=== PATIENT | male | born 1965 | race Two or more races ===

== ENCOUNTER 2020-06-30 13:25 | Outpatient (REF) | payer OTHER, SELFPAY ==
[2020-06-30 14:50] LABS: MANUAL DIFF FLAG NO
[2020-06-30 14:54] LABS: Basophils Percent Auto 0.6 % (0-2); Eosinophils Absolute Auto 0.1 X10*3/uL (0.0-0.4); Eosinophils Percent Auto 1.5 % (0-4); Hematocrit 46.2 % (42-52); Hemoglobin 15.9 g/dl (14.0-18.0); Imm Gran Abs Auto 0.01 X10*3/uL (0.00-0.03); Imm Gran Pct Auto 0.1 % (0.0-0.4); Lymphocytes Absolute Auto 2.3 X10*3/uL (1.2-4.9); Lymphocytes Percent Auto 34.2 % (20-40); Mean Corpuscular HGB Conc 34.4 g/dl (31.0-36.0); Mean Corpuscular Hemoglobin 30.8 pg (27.0-33.0); Mean Corpuscular Volume 89.5 fL (80-98); Mean Platelet Volume 12.2 fL (9.4-12.4); Monocytes Absolute Auto 0.6 X10*3/uL (0.1-1.2); Monocytes Percent Auto 9.4 % (2-11); Neutrophils Absolute Auto 3.6 X10*3/uL (2.0-8.3); Neutrophils Percent Auto 54.2 % (45-73); Platelet Count 154 X10*3/uL (160-400); Red Blood Count 5.16 X10*6/uL (4.60-5.80); Red Cell Distribution Width 11.5 % (11.0-16.0); White Blood Count 6.7 X10*3/uL (4.8-10.8)
[2020-06-30 15:14] LABS: Estimated Average Glucose 108 mg/dL; Hemoglobin A1c % 5.4 %
[2020-06-30 15:22] LABS: Alanine Aminotransferase 68 U/L (0-40); Albumin Level 4.4 g/dL (3.5-5.0); Alkaline Phosphatase 73 U/L (39-117); Anion Gap 15 (12-20); Aspartate Amino Transferase 55 U/L (5-37); Bilirubin Total 0.9 mg/dL (0.0-1.0); Blood Urea Nitrogen 18 mg/dL (9-16); Calcium 9.3 mg/dL (8.4-10.2); Carbon Dioxide 29 mmol/L (22-29); Chloride 104 mmol/L (96-108); Cholesterol 243 mg/dL; Estimated Glomerular Filt Rate > 60; Glucose Random 108 mg/dL (60-115); HDL Cholesterol 47 mg/dL; LDL Cholesterol Calculated 159 mg/dl; Potassium 4.6 mmol/L (3.3-5.1); Sodium 143 mmol/L (135-145); Total Protein 7.6 g/dL (6.5-8.0); Triglycerides 186 mg/dL
[2020-06-30 15:45] LABS: Free T4 (Free Thyroxine) 0.96 ng/dL (0.71-1.85); Prostate Specific Antigen Scr 0.09 ng/mL (<0.05-4.0); Thyroid Stimulating Hormone 1.07 uIU/mL (0.32-4.0)
[2020-06-30 16:53] LABS: Folate 11.4 ng/mL (> or = 4.0); Vitamin B12 413 pg/mL (200-900)
== END 2020-06-30 13:26 | disposition home or self-care (01) ==
LOC: HO.LAB 13:25
PROVIDERS: PCP Internal Medicine; Visit Provider Internal Medicine
DX: R73.02 Impaired glucose tolerance (oral) (principal); E78.00 Pure hypercholesterolemia, unspecified
CPT/HCPCS: 36415; 80053; 80061; 82607; 82746; 83036; 84153; 84439; 84443; 85025

== ENCOUNTER 2020-11-11 13:03 | Outpatient (REF) | payer OTHER, SELFPAY ==
[2020-11-11 13:38] LABS: MANUAL DIFF FLAG NO
[2020-11-11 13:42] LABS: Basophils Percent Auto 0.6 % (0-2); Eosinophils Absolute Auto 0.1 X10*3/uL (0.0-0.4); Eosinophils Percent Auto 1.4 % (0-4); Hemoglobin 16.8 g/dl (14.0-18.0); Imm Gran Abs Auto 0.01 X10*3/uL (0.00-0.03); Imm Gran Pct Auto 0.2 % (0.0-0.4); Lymphocytes Absolute Auto 1.8 X10*3/uL (1.2-4.9); Lymphocytes Percent Auto 28.3 % (20-40); Mean Corpuscular Hemoglobin 31.2 pg (27.0-33.0); Mean Corpuscular Volume 89.2 fL (80-98); Mean Platelet Volume 12.2 fL (9.4-12.4); Monocytes Absolute Auto 0.6 X10*3/uL (0.1-1.2); Monocytes Percent Auto 9.5 % (2-11); Neutrophils Absolute Auto 3.8 X10*3/uL (2.0-8.3); Platelet Count 151 X10*3/uL (160-400); Red Blood Count 5.38 X10*6/uL (4.60-5.80); Red Cell Distribution Width 11.4 % (11.0-16.0); White Blood Count 6.3 X10*3/uL (4.8-10.8)
[2020-11-11 13:52] LABS: Estimated Average Glucose 105 mg/dL; Hemoglobin A1c % 5.3 %
[2020-11-11 14:22] LABS: Alanine Aminotransferase 45 U/L (0-40); Albumin Level 4.6 g/dL (3.5-5.0); Alkaline Phosphatase 70 U/L (39-117); Anion Gap 13 (12-20); Aspartate Amino Transferase 36 U/L (5-37); Bilirubin Total 1.1 mg/dL (0.0-1.0); Blood Urea Nitrogen 25 mg/dL (9-16); Calcium 9.8 mg/dL (8.4-10.2); Carbon Dioxide 26 mmol/L (22-29); Chloride 104 mmol/L (96-108); Cholesterol 223 mg/dL; Estimated Glomerular Filt Rate > 60; Glucose Random 119 mg/dL (60-115); HDL Cholesterol 44 mg/dL; LDL Cholesterol Calculated 139 mg/dl; Potassium 4.4 mmol/L (3.3-5.1); Sodium 139 mmol/L (135-145); Total Protein 8.1 g/dL (6.5-8.0); Triglycerides 204 mg/dL
[2020-11-11 14:47] LABS: Prostate Specific Antigen Scr 0.09 ng/mL (<0.05-4.0); Thyroid Stimulating Hormone 0.53 uIU/mL (0.32-4.0)
[2020-11-11 14:55] LABS: Vitamin B12 455 pg/mL (200-900)
== END 2020-11-11 13:04 | disposition home or self-care (01) ==
LOC: HO.LAB 13:03
PROVIDERS: PCP Internal Medicine; Visit Provider Internal Medicine
DX: R73.02 Impaired glucose tolerance (oral) (principal); E78.00 Pure hypercholesterolemia, unspecified
CPT/HCPCS: 36415; 80053; 80061; 82607; 82746; 83036; 84153; 84439; 84443; 85025

== ENCOUNTER 2021-12-27 16:02 | Outpatient (REF) | payer OTHER, SELFPAY | END 2021-12-27 16:03 | disposition home or self-care (01) | LOC: HO.LAB 16:02 | PROVIDERS: PCP Internal Medicine; Visit Provider Nurse Practitioner Family | DX: Z13.89 Encounter for screening for other disorder (principal) | CPT/HCPCS: 36415; 83036; 84153 ==

== ENCOUNTER 2021-12-28 13:07 | Outpatient (REF) | payer OTHER, SELFPAY ==
[2021-12-28 14:19] LABS: Estimated Average Glucose 103 mg/dL; Hemoglobin A1C 149.8487 umol/L; Hemoglobin A1c % 5.2 %
[2021-12-28 15:03] LABS: Prostate Specific Antigen 0.11 ng/mL (<0.05-4.0)
== END 2021-12-28 13:08 | disposition home or self-care (01) ==
LOC: HO.LAB 13:07
PROVIDERS: Visit Provider Nurse Practitioner Family
DX: Z12.5 Encounter for screening for malignant neoplasm of prostate (principal); R73.02 Impaired glucose tolerance (oral)
CPT/HCPCS: 36415; 83036; 84153

== ENCOUNTER 2022-03-08 16:55 | Outpatient (REF) | payer OTHER, SELFPAY ==
[2022-03-08 17:10] LABS: MANUAL DIFF FLAG NO
[2022-03-08 17:29] LABS: Basophils Percent Auto 0.6 % (0-2); Eosinophils Absolute Auto 0.1 X10*3/uL (0.0-0.4); Eosinophils Percent Auto 1.3 % (0-4); Hematocrit 48.3 % (42.0-52.0); Hemoglobin 16.7 g/dl (14.0-18.0); Imm Gran Abs Auto 0.02 X10*3/uL (0.00-0.03); Imm Gran Pct Auto 0.3 % (0.0-0.4); Lymphocytes Absolute Auto 1.7 X10*3/uL (1.2-4.9); Lymphocytes Percent Auto 24.1 % (20-40); Mean Corpuscular HGB Conc 34.6 g/dl (31.0-36.0); Mean Corpuscular Hemoglobin 30.7 pg (27.0-33.0); Mean Corpuscular Volume 88.8 fL (80.0-98.0); Mean Platelet Volume 11.8 fL (9.4-12.4); Monocytes Absolute Auto 0.8 X10*3/uL (0.1-1.2); Monocytes Percent Auto 10.8 % (2-11); Neutrophils Absolute Auto 4.4 x10*3/uL (2.0-8.3); Neutrophils Percent Auto 62.9 % (45-73); Platelet Count 133 X10*3/uL (160-400); Red Blood Count 5.44 X10*6/uL (4.60-5.80); Red Cell Distribution Width 11.7 % (11.0-16.0); White Blood Count 6.9 X10*3/uL (4.8-10.8)
[2022-03-08 17:44] LABS: Alanine Aminotransferase 33 U/L (0-40); Albumin Level 4.7 g/dL (3.5-5.0); Alkaline Phosphatase 77 U/L (39-117); Anion Gap 16 (12-20); Aspartate Amino Transferase 33 U/L (5-37); Bilirubin Total 1.1 mg/dL (0.0-1.0); Blood Urea Nitrogen 18 mg/dL (9-16); Calcium 10.1 mg/dL (8.4-10.2); Carbon Dioxide 28 mmol/L (22-29); Chloride 101 mmol/L (96-108); Cholesterol 261 mg/dL; Estimated Glomerular Filt Rate 59; Glucose Random 93 mg/dL (60-115); HDL Cholesterol 53 mg/dL; LDL Cholesterol Calculated 156 mg/dl; Potassium 4.8 mmol/L (3.3-5.1); Sodium 140 mmol/L (135-145); Total Protein 8.3 g/dL (6.5-8.0); Triglycerides 262 mg/dL
[2022-03-08 18:05] LABS: Free T4 (Free Thyroxine) 1.13 ng/dL (0.71-1.85); Prostate Specific Antigen Scr 0.07 ng/mL (<0.05-4.0); Thyroid Stimulating Hormone 1.68 uIU/mL (0.32-4.0)
[2022-03-08 18:17] LABS: Folate 12.4 ng/mL (> or = 4.0); Vitamin B12 507 pg/mL (200-900)
== END 2022-03-08 16:56 | disposition home or self-care (01) ==
LOC: HO.LAB 16:55
PROVIDERS: PCP Internal Medicine; Visit Provider Internal Medicine
DX: Z12.5 Encounter for screening for malignant neoplasm of prostate (principal); E78.00 Pure hypercholesterolemia, unspecified
CPT/HCPCS: 36415; 80053; 80061; 82607; 82746; 84153; 84439; 84443; 85025

== ENCOUNTER 2022-09-04 10:12 | Emergency (ER) | payer OTHER, SELFPAY ==
--- NOTE | ~2022-09-04 | XR_ITS ---
EXAMINATION: XR KNEE, RIGHT CLINICAL INFORMATION: Atraumatic right anterior knee pain. COMPARISON: None available. TECHNIQUE: Four views of the right knee. FINDINGS: Bones and soft tissues are normal. No fracture or joint effusion. Alignment is anatomic. Joint spaces are well maintained. No abnormal soft tissue calcification. XR/XR knee RT 4V IMPRESSION: Unremarkable right knee.
[2022-09-04 10:30] VITALS: BP 153/90; PULSE 54; RESP 18; TEMP 36.7; O2SAT 97; BMI 26.6
--- NOTE | 2022-09-04 12:16 | PC.NURSE ---
Patient in room awaiting provider. Patient describes anxiety and pain both /10. Pt resting comfortably in chair.
--- NOTE | 2022-09-04 12:24 | ED.EXTPRO ---
HPI - Extremity Problem General Chief complaint: Extremity Problem Stated complaint: R leg pain/Anxiety Time Seen by Provider: 09/04/22 12:17 Source: patient, RN notes reviewed and old records reviewed Mode of arrival: ambulatory History of Present Illness HPI Narrative: 57-year-old male with a past medical history of GERD, fatty liver, HLD, obesity, thrombocytopenia, presenting to the ED complaining of suspected anxiety/panic attack last night with associated body parathesias/numbness, chest discomfort and SOB. Reports has intermittent chest discomfort x awhile which his PCP is aware of. Also reports acute on chronic right knee pain, admits practices [employer] suspects overuse injury from kicking. Denies more recent injury/trauma or fall. Denies headache, lightheadedness/dizziness, focal weakness, fever/chills MD Complaint: extremity pain and joint pain Onset (ago): day(s) Related Data Previous Rx's Medication Instructions Recorded clotrimazole 1 % topical cream 1 appl topical BID 4 weeks #30 05/19/21 grams miconazole nitrate 2 % topical 1 appl topical BID #71 grams 05/19/21 powder (Zeasorb AF) sildenafil 100 mg tablet (Viagra) 100 mg PO DAILY PRN sexual 05/19/21 activity #30 tabs omeprazole 20 mg capsule,delayed 20 mg PO DAILY #90 caps 11/24/21 release triamcinolone acetonide 0.025 % 1 appl topical BID #45 grams 03/08/22 topical cream buspirone 10 mg tablet 10 mg PO DAILY 90 days #90 tabs 05/31/22 clonazepam 0.5 mg tablet 0.5 mg PO BEDTIME PRN anxi 30 days 05/31/22 #30 tabs diphenoxylate-atropine 2.5 1 tab PO TID 90 days #270 tabs 05/31/22 mg-0.025 mg tablet propranolol 20 mg tablet 20 mg PO .QD 90 days #90 tabs 05/31/22 Allergies Allergy/AdvReac Type Severity Reaction Status Date / Time lactose [LACTOSE] AdvReac Severe TRIGGERS Verified 06/18/22 15:51 IBS Review of Systems Review of Systems: Constitutional: No Fever, No Chills ENT/Mouth: No Ear Pain, No Nasal Congestion, No Sinus Pain, No Hoarseness, No sore throat, No Rhinorrhea, No Swallowing Difficulty Cardiovascular: +intermittent Chest Pain, + SOB Respiratory: No Cough, No Sputum, No Wheezing Gastrointestinal: No Nausea, No Vomiting, No Diarrhea, No Constipation, No Abdominal pain Genitourinary: No Dysuria, No Urinary Frequency, No Hematuria, No Urinary Incontinence/retention, No Flank Pain Musculoskeletal: + joint pain, No Myalgias, No Joint Swelling Skin: No Skin Lesions, No rash Neuro: No Weakness, + Numbness, + Paresthesias Yes all other systems are reviewed and are negative Constitutional: Constitutional: Reports as per HPI Neurologic: Denies Abnormal speech present [facility] Past Medical History Attestation statement: The following information was validated with the patient. Medical History Erectile dysfunction Fatty liver GERD (gastroesophageal reflux disease) Hypercholesterolemia Irritable bowel syndrome Obesity (BMI 30-39.9) Overweight (BMI 25.0-29.9) Thrombocytopenia Vitamin D deficiency Surgical History History of colonoscopy History of surgery Family History Family History Father Lung cancer Mother Hypertension Diabetes Social History Social History Housing: Apartment Alcohol intake: current Alcohol intake frequency: holidays/special occasions only Patient Tobacco Use Status: Former Tobacco user Tobacco use type: Cigarette e-Cigarette/Vaping Use: Never Used Second Hand Smoke Exposure: Yes Advance Directives: No Advance Directives Information Provided: Yes service: No Current occupational status: unemployed Cognitive needs: No Hearing needs: No Vision needs: Yes Physical Exam Vital Signs: Vital Signs: Last Vital Signs Temp 98.1 F 09/04/22 10:30 Pulse 54 09/04/22 10:30 Resp 18 09/04/22 10:30 BP 153/90 H 09/04/22 10:30 Pulse Ox 97 09/04/22 10:30 O2 Del Method Room Air 09/04/22 10:30 BMI result Body Mass Index 26.6 Const: General: cooperative, healthy appearing, no acute distress, alert and awake Orientation/consciousness: patient oriented x3 Limitations: no limitations HEENT: Head: Yes normal to inspection and Yes atraumatic Ears: hearing grossly normal bilaterally General nose exam: Normal external nose present Face and sinus: Yes normal facial exam Mouth: Normal oral and palatal mucosa present Throat: Yes posterior oropharynx normal Eyes: General: appearance normal, both eyes and all related structures Pupils: Equal, round and reactive pupils present EOM: EOMs intact bilaterally Neck: Neck: Yes normal visual inspection, Yes no meningeal signs and No anterior neck swelling Resp: Effort & Inspection: normal respiratory effort and no respiratory distress Auscultation: clear to auscultation bilaterally, no rales, no rhonchi and no wheezes Cardio: Rate: regular rate Heart sounds: S1 normal heart sound present and S2 normal heart sound present Skin: Rashes: no rashes Wounds: no wounds Neuro: General: patient oriented x3, gait normal, tone normal, moves all extremities, no meningeal signs, no focal motor deficits and CN's II-XI intact bilaterally Cranial nerves: Yes CN's II-XII intact bilaterally and Yes Equal, round and reactive pupils present Cognition (Neuro): normal cognition Speech: No Abnormal speech present Gait exam (Neuro): Normal gait present Motor exam (neuro): 5/5 motor strength present throughout and Pronator motor function not present Extrem: Other: right knee without noted deformity. Nontender. No erythema/warmth. Full range of motion intact. Neurovascular intact distally General: Yes normal to inspection Course Course Course Narrative: XR knee RT 4V IMPRESSION: Unremarkable right knee. -[id number]--labs unremarkable including negative troponin Results discussed with patient including worrisome signs and symptoms and strict return precautions, and when to return to the emergency department. They verbalized understanding and feel safe for discharge at this time. Medical Decision Making Medical Decision Making [facility] Narrative: 57-year-old male with a past medical history of GERD, fatty liver, HLD, obesity, thrombocytopenia, presenting to the ED complaining of suspected anxiety/panic attack last night with associated body parathesias/numbness, chest discomfort and SOB. On exam vital signs stable, NAD, nontoxic appearing, right knee nontender, no noted deformity, no focal deficits. Concern for anxiety/panic reaction vs MSK pain/strain. Symptoms atypical for ACS/PE or CVA/TIA. Unlikely PNA Plan: EKG, labs, knee x-ray Please refer to course for remaining clinical decision making, interpretation of labs/imaging results, and discussions with consultants and/or family members. Differential Diagnosis Differential Diagnoses: The differential diagnosis associated with the presentation includes As above Admission/Observation Consideration of admission/observation: Escalation of care including admission/observation considered Lab Data MDM Lab Attestation statement: I reviewed the patient's lab results. 09/04/22 12:57 09/04/22 12:57 Labs: Lab Results 09/04/22 09/04/22 09/04/22 Range/Units 12:57 12:57 12:57 WBC 8.0 (4.8-10.8) X10*3/uL RBC 5.47 (4.60-5.80) X10*6/uL Hgb 16.6 (14.0-18.0) g/dl Hct 47.5 (42.0-52.0) % MCV 86.8 (80.0-98.0) fL MCH 30.3 (27.0-33.0) pg MCHC 34.9 (31.0-36.0) g/dl RDW 11.4 (11.0-16.0) % Plt Count 173 D (160-400) X10*3/uL MPV 11.8 (9.4-12.4) fL Immature Gran % (Auto) 0.2 (0.0-0.4) % Neut % (Auto) 65.5 (45-73) % Lymph % (Auto) 26.6 (20-40) % Nelson % (Auto) 6.6 (2-11) % Eos % (Auto) 0.5 (0-4) % Baso % (Auto) 0.6 (0-2) % Lymph # (Auto) 2.1 (1.2-4.9) X10*3/uL Nelson # (Auto) 0.5 (0.1-1.2) X10*3/uL Eos # (Auto) 0.0 (0.0-0.4) X10*3/uL Baso # (Auto) 0.1 (0.0-0.2) X10*3/uL Abs Immat Gran (auto) 0.02 (0.00-0.03) X10*3/uL Absolute Neuts (auto) 5.3 (2.0-8.3) x10*3/uL Absolute Nucleated RBC 0.000 (0.0-0.012) X10*3/uL Nucleated RBC % (auto) 0.0 (0.0-0.2) /100WBC Sodium 140 (135-145) mmol/L Potassium 4.8 (3.3-5.1) mmol/L Chloride 104 (96-108) mmol/L Carbon Dioxide 28 (22-29) mmol/L Anion Gap 13 (12-20) BUN 19 H (9-16) mg/dL Creatinine 0.84 (0.5-1.4) mg/dL Estim Creat Clear Calc 98.1 Estimated GFR > 60 Random Glucose 108 (60-115) mg/dL Calcium 9.7 (8.4-10.2) mg/dL Magnesium 2.1 (1.6-2.6) mg/dL Total Bilirubin 0.9 (0.0-1.0) mg/dL Direct Bilirubin 0.2 (0.0-0.5) mg/dL AST 21 (5-37) U/L ALT 19 (0-40) U/L Alkaline Phosphatase 67 (39-117) U/L Troponin I High Sens < 2.7 (<3.5-35.0) ng/L B-Natriuretic Peptide (<100) pg/mL Total Protein 7.8 (6.5-8.0) g/dL Albumin 4.5 (3.5-5.0) g/dL 09/04/22 Range/Units 12:57 WBC (4.8-10.8) X10*3/uL RBC (4.60-5.80) X10*6/uL Hgb (14.0-18.0) g/dl Hct (42.0-52.0) % MCV (80.0-98.0) fL MCH (27.0-33.0) pg MCHC (31.0-36.0) g/dl RDW (11.0-16.0) % Plt Count (160-400) X10*3/uL MPV (9.4-12.4) fL Immature Gran % (Auto) (0.0-0.4) % Neut % (Auto) (45-73) % Lymph % (Auto) (20-40) % Nelson % (Auto) (2-11) % Eos % (Auto) (0-4) % Baso % (Auto) (0-2) % Lymph # (Auto) (1.2-4.9) X10*3/uL Nelson # (Auto) (0.1-1.2) X10*3/uL Eos # (Auto) (0.0-0.4) X10*3/uL Baso # (Auto) (0.0-0.2) X10*3/uL Abs Immat Gran (auto) (0.00-0.03) X10*3/uL Absolute Neuts (auto) (2.0-8.3) x10*3/uL Absolute Nucleated RBC (0.0-0.012) X10*3/uL Nucleated RBC % (auto) (0.0-0.2) /100WBC Sodium (135-145) mmol/L Potassium (3.3-5.1) mmol/L Chloride (96-108) mmol/L Carbon Dioxide (22-29) mmol/L Anion Gap (12-20) BUN (9-16) mg/dL Creatinine (0.5-1.4) mg/dL Estim Creat Clear Calc Estimated GFR Random Glucose (60-115) mg/dL Calcium (8.4-10.2) mg/dL Magnesium (1.6-2.6) mg/dL Total Bilirubin (0.0-1.0) mg/dL Direct Bilirubin (0.0-0.5) mg/dL AST (5-37) U/L ALT (0-40) U/L Alkaline Phosphatase (39-117) U/L Troponin I High Sens (<3.5-35.0) ng/L B-Natriuretic Peptide 37 (<100) pg/mL Total Protein (6.5-8.0) g/dL Albumin (3.5-5.0) g/dL Independent Interpretation I performed an independent interpretation of an: EKG (EKG sinus bradycardia rate of 53. ID interval 154. No STEMI. No significant change when compared to prior ) Radiology Impression Discussion of test interpretation with radiology: I have reviewed the radiologist's reading. External Record Review External record reviewed: Inpatient record, Office record, Outpatient record, Prior outpatient labs, Prior outpatient radiology, Primary care record and Outside ED record Discharge Plan Discharge Clinical Impression: Anxiety reaction, Atypical chest pain, Paresthesias, Chronic knee pain Patient Disposition: Home, Self-Care Instructions: Paresthesia (ED), Arthralgia (ED), Noncardiac Chest Pain (ED), Anxiety (ED) Additional Instructions: Your blood work is reassuring. Her heart enzyme was unremarkable Your knee x-ray is also unremarkable Ice and elevate your knee Please follow-up with her doctor Stay hydrated Rest If symptoms persist or worsen you develop constant or worsening chest pain/shortness of breath return to the ED Prescriptions: No Action omeprazole 20 mg capsule,delayed release(DR/EC) 20 mg PO DAILY Qty: 90 0RF buspirone 10 mg tablet 10 mg PO DAILY 90 Days Qty: 90 1RF clonazepam 0.5 mg tablet 0.5 mg PO BEDTIME PRN (Reason: anxi) 30 Days Qty: 30 2RF diphenoxylate-atropine 2.5-0.025 mg tablet 1 tab PO TID 90 Days Qty: 270 2RF propranolol 20 mg tablet 20 mg PO .QD 90 Days Qty: 90 2RF clotrimazole 1 % cream 1 appl topical BID 28 Days Qty: 30 0RF Zeasorb AF 2 % powder 1 appl topical BID Qty: 71 0RF sildenafil [Viagra] 100 mg tablet 100 mg PO DAILY PRN (Reason: sexual activity) Qty: 30 3RF Rx Instructions: administer 30 minutes to 4 hours before activity triamcinolone acetonide 0.025 % cream 1 appl topical BID Qty: 45 0RF [place]: [facility] [place] Group] Danii Caldera MD [Primary Care Provider] - 5 days Interventions: ED Discharge Assessment Last Done: 09/04/22 14:01 Discharge Date/Time: 09/04/22 14:01
--- NOTE | 2022-09-04 12:33 | ECG_ITS ---
Test Reason : CP Blood Pressure : / mmHG Vent. Rate : 053 BPM Atrial Rate : 053 BPM P-R Int : 154 ms QRS Dur : 090 ms QT Int : 418 ms P-R-T Axes : 011 031 030 degrees QTc Int : 392 ms Sinus bradycardia Otherwise normal ECG When compared with ECG of 04-SEP-2019 12:07, No significant change was found Referred By: Simona Lua Electronically Signed By:MAMADOU KRAMER MD
[2022-09-04 13:09] LABS: MANUAL DIFF FLAG NO
[2022-09-04 13:10] LABS: Basophils Absolute Auto 0.1 X10*3/uL (0.0-0.2); Basophils Percent Auto 0.6 % (0-2); Eosinophils Percent Auto 0.5 % (0-4); Hematocrit 47.5 % (42.0-52.0); Hemoglobin 16.6 g/dl (14.0-18.0); Imm Gran Abs Auto 0.02 X10*3/uL (0.00-0.03); Imm Gran Pct Auto 0.2 % (0.0-0.4); Lymphocytes Absolute Auto 2.1 X10*3/uL (1.2-4.9); Lymphocytes Percent Auto 26.6 % (20-40); Mean Corpuscular HGB Conc 34.9 g/dl (31.0-36.0); Mean Corpuscular Hemoglobin 30.3 pg (27.0-33.0); Mean Corpuscular Volume 86.8 fL (80.0-98.0); Mean Platelet Volume 11.8 fL (9.4-12.4); Monocytes Absolute Auto 0.5 X10*3/uL (0.1-1.2); Monocytes Percent Auto 6.6 % (2-11); Neutrophils Absolute Auto 5.3 x10*3/uL (2.0-8.3); Neutrophils Percent Auto 65.5 % (45-73); Platelet Count 173 X10*3/uL (160-400); Red Blood Count 5.47 X10*6/uL (4.60-5.80); Red Cell Distribution Width 11.4 % (11.0-16.0)
[2022-09-04 13:25] LABS: Alanine Aminotransferase 19 U/L (0-40); Albumin Level 4.5 g/dL (3.5-5.0); Alkaline Phosphatase 67 U/L (39-117); Anion Gap 13 (12-20); Aspartate Amino Transferase 21 U/L (5-37); Bilirubin Direct 0.2 mg/dL (0.0-0.5); Bilirubin Total 0.9 mg/dL (0.0-1.0); Blood Urea Nitrogen 19 mg/dL (9-16); Calcium 9.7 mg/dL (8.4-10.2); Carbon Dioxide 28 mmol/L (22-29); Chloride 104 mmol/L (96-108); Creatinine Clr Calc Pharmacy 98.1; Estimated Glomerular Filt Rate > 60; Glucose Random 108 mg/dL (60-115); Magnesium 2.1 mg/dL (1.6-2.6); Potassium 4.8 mmol/L (3.3-5.1); Sodium 140 mmol/L (135-145); Total Protein 7.8 g/dL (6.5-8.0)
[2022-09-04 13:30] LABS: B Type Natriuretic Peptide 37 pg/mL (<100)
[2022-09-04 13:32] LABS: Troponin-I High Sensitivity < 2.7 ng/L (<3.5-35.0)
== END 2022-09-04 14:01 | disposition home or self-care (01) ==
PROVIDERS: Physician Assistant; Emergency Provider Emergency Medicine; PCP Internal Medicine
DX: R07.89 Other chest pain (principal); M25.562 Pain in left knee; M25.561 Pain in right knee; F41.1 Generalized anxiety disorder; F43.0 Acute stress reaction; Z79.899 Other long term (current) drug therapy
CPT/HCPCS: 36415; 73564; 80048; 80076; 83735; 83880; 84484; 85025; 93005; 99283

== ENCOUNTER 2022-09-20 15:53 | Outpatient (REF) | payer OTHER, SELFPAY ==
[2022-09-20 16:08] LABS: MANUAL DIFF FLAG NO
[2022-09-20 16:20] LABS: Basophils Percent Auto 0.4 % (0-2); Eosinophils Absolute Auto 0.1 X10*3/uL (0.0-0.4); Hemoglobin 16.1 g/dl (14.0-18.0); Imm Gran Abs Auto 0.01 X10*3/uL (0.00-0.03); Imm Gran Pct Auto 0.1 % (0.0-0.4); Lymphocytes Absolute Auto 2.5 X10*3/uL (1.2-4.9); Lymphocytes Percent Auto 31.5 % (20-40); Mean Corpuscular HGB Conc 35.8 g/dl (31.0-36.0); Mean Corpuscular Hemoglobin 31.1 pg (27.0-33.0); Mean Platelet Volume 11.5 fL (9.4-12.4); Monocytes Absolute Auto 0.8 X10*3/uL (0.1-1.2); Monocytes Percent Auto 10.4 % (2-11); Neutrophils Absolute Auto 4.4 x10*3/uL (2.0-8.3); Neutrophils Percent Auto 56.6 % (45-73); Platelet Count 172 X10*3/uL (160-400); Red Blood Count 5.17 X10*6/uL (4.60-5.80); Red Cell Distribution Width 11.6 % (11.0-16.0); White Blood Count 7.8 X10*3/uL (4.8-10.8)
[2022-09-20 16:58] LABS: Alanine Aminotransferase 31 U/L (0-40); Albumin Level 4.6 g/dL (3.5-5.0); Alkaline Phosphatase 70 U/L (39-117); Anion Gap 13 (12-20); Aspartate Amino Transferase 29 U/L (5-37); Bilirubin Total 1.2 mg/dL (0.0-1.0); Blood Urea Nitrogen 25 mg/dL (9-16); Calcium 10.1 mg/dL (8.4-10.2); Carbon Dioxide 27 mmol/L (22-29); Chloride 104 mmol/L (96-108); Cholesterol 247 mg/dL; Estimated Glomerular Filt Rate > 60; Glucose Random 95 mg/dL (60-115); HDL Cholesterol 46 mg/dL; LDL Cholesterol Calculated 149 mg/dl; Potassium 4.7 mmol/L (3.3-5.1); Sodium 139 mmol/L (135-145); Total Protein 7.9 g/dL (6.5-8.0); Triglycerides 264 mg/dL
[2022-09-20 17:06] LABS: Free T4 (Free Thyroxine) 0.98 ng/dL (0.71-1.85)
== END 2022-09-20 15:54 | disposition home or self-care (01) ==
LOC: HO.LAB 15:53
PROVIDERS: PCP Internal Medicine; Visit Provider Internal Medicine
DX: E78.00 Pure hypercholesterolemia, unspecified (principal)
CPT/HCPCS: 36415; 80053; 80061; 84439; 84443; 85025

== ENCOUNTER 2022-12-28 14:45 | Outpatient (AMB) | payer OTHER, SELFPAY ==
[2022-12-28 14:49] VITALS: BP 110/80; PULSE 85; O2SAT 97; BMI 28.1
--- NOTE | 2022-12-28 14:49 | AM.OFFVISMDC ---
Intake Vital Signs 12/28/22 14:49 Height 5 ft 9 in Weight 190 lb 4 oz BMI 28.1 BP 110/80 Blood Pressure Location Lt brachial Position Sitting Pulse 85 Pulse Source Pulse Oximeter Pulse Oximetry (%) 97 Oxygen Delivery Method Room Air Intake Visit Reasons: [facility] Intake Note: Patient is here for an Annual Wellness Visit. Hospital Housekeeper Required: No Accompanied by: Self / Same As Patient Allergies lactose [LACTOSE] Adverse Reaction (Severe, Verified 12/28/22 15:03) TRIGGERS IBS Medication List - Last Reconciled 12/28/22 by ELIE Victoria buspirone 10 mg PO DAILY 90 days clonazepam 0.5 mg PO BEDTIME PRN 30 days clotrimazole 1% 1 appl topical BID 4 weeks diphenoxylate-atropine 2.5-0.025 mg 1 tab PO TID 90 days miconazole nitrate 2% (Zeasorb AF) 1 appl topical BID propranolol 20 mg PO .QD 90 days triamcinolone acetonide 0.025% 1 appl topical BID HPI [facility] HPI Details Patient is a 57-year-old male presents today for subsequent wellness visit.? Patient of Dr. Caldera. Patient is up-to-date with his health preventative screenings and immunizations.? [place] of care was reviewed with the patient and he was provided with a screening schedule. Patient has declined the end of life planning conversation at this visit. ? [facility] Medical History Erectile dysfunction Fatty liver GERD (gastroesophageal reflux disease) Hypercholesterolemia Irritable bowel syndrome Obesity (BMI 30-39.9) Overweight (BMI 25.0-29.9) Thrombocytopenia Vitamin D deficiency Surgical History History of colonoscopy History of surgery Family History Father Lung cancer Mother Hypertension Diabetes Social History Housing: Apartment Alcohol intake: current Alcohol intake frequency: holidays/special occasions only Patient Tobacco Use Status: Former Tobacco user Tobacco use type: Cigarette e-Cigarette/Vaping Use: Never Used Second Hand Smoke Exposure: Yes service: No Current occupational status: unemployed Cognitive needs: No Hearing needs: No Vision needs: Yes Questionnaire Medicare Wellness Checkup [age] 65-69 What gender do you identify with?: male During the past 4 weeks, how much have you been bothered by emotional problems such as feeling anxious, depressed, irritable, sad or downhearted, and blue?: slightly During the past 4 weeks, has your physical & emotional health limited your social activities with family, friends, neighbors, or groups?: slightly During the past 4 weeks, how much bodily pain have you generally had?: very mild pain During the past 4 weeks, was someone available to help you if you needed & wanted help?: yes, a little During the past 4 weeks, what was the hardest physical activity you could do for at least 2 minutes?: moderate Can you get to places out of walking distance without help? (For eg., can you travel alone on buses, taxis or drive your car?): No Can you go shopping for groceries or clothes without someone's help?: Yes Can you prepare your own meals?: Yes Can you do your housework without help?: Yes Because of any health problems, do you need the help of another person with your personal care needs such as eating, bathing, dressing or getting around the house?: Yes Can you handle your own money without help?: No During the past 4 weeks, how would you rate your health in general?: fair During the past 4 weeks how have things been going for you?: good & bad parts about equal Are you having difficulties driving your car?: no Do you always fasten your seat belt when you are in a car?: yes, sometimes During past 4 weeks, have you been bothered by the following: never: Falling or dizzy when standing up, Sexual problems?, Trouble eating well? and Problems using the telephone?, seldom: Tiredness or fatigue? and always: Teeth or denture problems? Have you fallen 2 or more times in the past year?: No Are you afraid of falling?: No Are you a smoker?: no During the past 4 weeks, how many drinks of wine, beer, or other alcoholic beverages did you have?: 6-9 drinks per week Do you exercise for about 20 minutes 3 or more times a week?: yes, most of the time Have you been given information to help with the following?: no: Hazards in your house that might hurt you? and no: Keeping track of your medications? How often do you have trouble taking medicines the way you have been told to take them?: I always take medicine as prescribed How confident are you that you can control & manage most of your health problems?: very confident What is your race?: or origin or descent Mini Mental State Exam (MMSE) Orientation What is the (year) (season) (date) (day) (month)?: year, season, date, day and month Score Score: 5 Activity of Daily Living Bathing - sponge bath, tub bath or shower: receives no assistance (gets in/out by self, if usual bathing means Dressing - getting clothes from closets & drawers, including inner/outer garments & fasteners.: gets clothes & gets completely dressed without help Toileting - going to the 'toilet room' for urine/bowel elimination & cleaning self/arranging clothes: goes to toilet room, cleans self, arranges clothes without help Transfer: moves in & out of bed and chair without help (may use support object) Continence: controls urination/bowel movements completely by self Feeding: feeds self without help Total Score: 0 Information obtained from: patient Using telephone: independent Traveling: independent Shopping: independent Preparing meals: independent Housework: independent Taking medicine: independent Managing money: independent PHQ-9 Over the last 2 weeks, how often have you been bothered by any of the following problems? 1. Little interest or pleasure in doing things: several days 2. Feeling down, depressed, or hopeless: several days 3. Trouble falling or staying asleep, or sleeping too much: more than half the days 4. Feeling tired or having little energy: several days 5. Poor appetite or overeating: not at all 6. Feeling bad about yourself - or that you are a failure or have let yourself or your family down: more than half the days 7. Trouble concentrating on things, such as reading the newspaper or watching television: not at all 8. Moving or speaking so slowly that other people could have noticed. Or the opposite - being so fidgety or restless that you have been moving around a lot more than usual: not at all 9. Thoughts that you would be better off or of hurting yourself in some way: several days Total score: 8 Depression Screening Interpretation: Positive Depression Screening Follow-up: In treatment 65812 - PHQ-9 Billing: Yes Source: Developed by Drs. Jimenez Pelayo, Rhoda Hawley, Lennox Sin and colleagues, with an educational alaina from [employer]. Physical Exam Vital Signs: BMI result Body Mass Index 28.1 Const General: cooperative and no acute distress Orientation/consciousness: patient oriented x3 HEENT Other: Whisper test: pass Neuro Other: Balance: Normal Get up and walk: able to Romberg: negative Tandem gait: able to General: patient oriented x3 Assessment & Plan Assessment & Plan (1) Adult general medical exam: Code(s): Z00.00 - Encounter for general adult medical examination without abnormal findings (2) Overweight (BMI 25.0-29.9): Code(s): E66.3 - Overweight Plan: Encouraged healthy food choices and exercise as tolerated (3) Impaired glucose tolerance: Code(s): R73.02 - Impaired glucose tolerance (oral) Plan: Random glucose 95 09/2022 Continue to monitor (4) Fatty liver: Code(s): K76.0 - Fatty (change of) liver, not elsewhere classified Plan: Encouraged low cholesterol diet (5) GERD (gastroesophageal reflux disease): Code(s): K21.9 - Gastro-esophageal reflux disease without esophagitis Qualifiers: Esophagitis presence: without esophagitis Qualified Code(s): K21.9 - Gastro-esophageal reflux disease without esophagitis Plan: Avoid GERD trigger foods. (6) Hypercholesterolemia: Code(s): E78.00 - Pure hypercholesterolemia, unspecified Plan: Reinforced low-cholesterol diet and exercise. (7) Anxiety: Comment: Panic disorder Code(s): F41.9 - Anxiety disorder, unspecified Plan: Continue to follow-up with your therapist. Continue current treatment. Quality Reporting (2019) Depression/Bipolar (159/160/161/177) PHQ-9: Total score: 8 Coding Level of Care Code Medicare Subsequent (G0439) Diagnoses Adult general medical exam Z00.00 Overweight (BMI 25.0-29.9) E66.3 Impaired glucose tolerance R73.02 Fatty liver K76.0 GERD (gastroesophageal reflux disease) K21.9 Esophagitis presence: without esophagitis Hypercholesterolemia E78.00 Anxiety F41.9 Advance Care Planning Advance Care Planning discussion: Declined forms Date of discussion: 12/28/22 Who was present: pt and welfare adviser Actual minutes spent: 1 Did not discuss due to Cultural/Spiritual beliefs: No
== END 2022-12-28 15:16 | disposition home or self-care (01) ==
PROVIDERS: Visit Provider Nurse Practitioner Family
DX: Z00.00 Encounter for general adult medical examination without abnormal findings (principal); K21.9 Gastro-esophageal reflux disease without esophagitis; F41.9 Anxiety disorder, unspecified; E66.3 Overweight; R73.02 Impaired glucose tolerance (oral); K76.0 Fatty (change of) liver, not elsewhere classified; E78.00 Pure hypercholesterolemia, unspecified
CPT/HCPCS: G0439

== ENCOUNTER 2023-04-02 15:15 | Outpatient (AMB) | payer OTHER, SELFPAY ==
[2023-04-02 15:19] VITALS: BP 130/90; PULSE 55; O2SAT 90; BMI 28.8
--- NOTE | 2023-04-02 15:19 | A.OFFPC_ITS ---
Vital Signs 04/02/23 15:19 04/02/23 16:03 Height 5 ft 9 in Weight 195 lb 2 oz BMI 28.8 BP 130/90 H 136/82 Blood Pressure Location Lt brachial Lt brachial Position Sitting Sitting Pulse 55 Pulse Source Pulse Oximeter Pulse Oximetry (%) 90 L Oxygen Delivery Method Room Air Intake Visit Reasons: anxiety Egg Sorter Required: No Accompanied by: Self / Same As Patient Allergies lactose [LACTOSE] Adverse Reaction (Severe, Verified 04/02/23 15:19) TRIGGERS IBS Medication List - Last Reconciled 04/02/23 by Danii Caldera MD buspirone 10 mg PO DAILY 90 days clonazepam 0.5 mg PO BEDTIME PRN 30 days clotrimazole 1% 1 appl topical BID 4 weeks diphenoxylate-atropine 2.5-0.025 mg 1 tab PO TID 90 days miconazole nitrate 2% (Zeasorb AF) 1 appl topical BID propranolol 20 mg PO .QD 90 days triamcinolone acetonide 0.025% 1 appl topical BID Tobacco use date assessed: 06/18/22 Dental Screening Dental Screen Date: 04/02/23 Did you have a dental visit in the last 12 months?: Yes Did you have a dental problem in the last 6 months where you did not have access to dental care?: No Was dental information given to patient?: Patient has dentist HPI anxiety HPI Details 57-year-old overweight male with a histo ry of hypercholesterolemia irritable bowel syndrome GERD impaired glucose tolerance and generalized anxiety disorder last seen in September 2022. Patient is up-to-date with colonoscopy September 2018. Patient did see the nurse practitioner in December 2022 for an annual well visit [facility] Medical History (Updated 04/02/23 @ 16:08 by Danii Caldera MD) Screening for prostate cancer Obesity (BMI 30-39.9) Overweight (BMI 25.0-29.9) Fatty liver Thrombocytopenia Vitamin D deficiency GERD (gastroesophageal reflux disease) Irritable bowel syndrome Erectile dysfunction Hypercholesterolemia Surgical History History of colonoscopy History of surgery Family History Father Lung cancer Mother Hypertension Diabetes Social History Housing: Apartment Alcohol intake: current Alcohol intake frequency: holidays/special occasions only Patient Tobacco Use Status: Former Tobacco user Tobacco use type: Cigarette e-Cigarette/Vaping Use: Never Used Second Hand Smoke Exposure: Yes service: No Current occupational status: unemployed Cognitive needs: No Hearing needs: No Vision needs: Yes Questionnaire Thrive Questionnaire Date Thrive assessed: 06/18/22 EZIO-7 AMB Questionnaire EZIO-7 Date EZIO - 7 assessed: 06/18/22 Source: Developed by Drs. Jimenez Pelayo, Rhoda Hawlye, Lennox Sin and colleagues, with an educational alaina from [employer]. Physical exam (Primary Care) Vital Signs: Last Vital Signs Pulse 55 04/02/23 15:19 BP 130/90 H 04/02/23 15:19 Pulse Ox 90 L 04/02/23 15:19 Oxygen Delivery Method Room Air 04/02/23 15:19 BMI result Body Mass Index 28.8 Tobacco/Smoking Status: Tobacco use Status Tobacco use date assessed 06/18/22 04/02/23 15:20 Patient Tobacco Use Status Former Tobacco user 04/02/23 15:20 Tobacco use type Cigarette 04/02/23 15:20 e-Cigarette/Vaping Use Never Used 04/02/23 15:20 Thrive Assessment: Date of Thrive Assessment Date Thrive assessed 06/18/22 04/02/23 15:20 Const General: alert; No acute distress Eyes Conjunctivae: conjunctivae normal Resp Auscultation: clear to auscultation bilaterally Cardio Rate: regular rate Rhythm: regular rhythm GI Inspection: Yes normal to inspection Extrem General: Yes normal to inspection and No edema Assessment and Plan Assessment & Plan (1) Hypercholesterolemia: Code(s): E78.00 - Pure hypercholesterolemia, unspecified Plan: Avoid fried foods, chicken skin, eggs, butter margarine, pastries and meat. Be it pork or beef they have a lot of cholesterol LDL goal of less than 130 and triglyceride of less than 150 diet control (2) Irritable bowel syndrome: Code(s): K58.9 - Irritable bowel syndrome without diarrhea Qualifiers: Irritable bowel syndrome type: with diarrhea Qualified Code(s): K58.0 - Irritable bowel syndrome with diarrhea Plan: Continue with taking diphenoxylate as needed, high-fiber diet keep well-hydrated (3) GERD (gastroesophageal reflux disease): Code(s): K21.9 - Gastro-esophageal reflux disease without esophagitis Qualifiers: Esophagitis presence: without esophagitis Qualified Code(s): K21.9 - Gastro-esophageal reflux disease without esophagitis Plan: Avoid the foods that causes that usually spicy foods, tomato products, juices, coffee, soda and foods that your sensitive to. After eating do not lie down, allow 3-4 hours before in lie down. And keep the head of bed above 30 degrees to avoid the acid from going up. (4) Overweight (BMI 25.0-29.9): Code(s): E66.3 - Overweight Plan: Diet and exercise (5) Fatty liver: Code(s): K76.0 - Fatty (change of) liver, not elsewhere classified Plan: Low-fat diet (6) Impaired glucose tolerance: Code(s): R73.02 - Impaired glucose tolerance (oral) Plan: Decrease the amount of carbohydrate intake, pasta, bread, rice and potatoes are all sugar and that is aside from all the sweet stuff, remember that fruits are good but they are Sweet also. (7) Generalized anxiety disorder with panic attacks: Comment: counselling [facility] counselling Code(s): F41.1 - Generalized anxiety disorder; F41.0 - Panic disorder [episodic paroxysmal anxiety] Plan: Continue with medication as needed (8) Vision changes: Code(s): H53.9 - Unspecified visual disturbance Orders: Orders Comprehensive Met. Panel Today R73.02 - Impaired glucose tolerance (oral) Complete Blood Count Auto Diff Today E78.00 - Pure hypercholesterolemia, unspecified Free T4 (Free Thyroxine) Today E78.00 - Pure hypercholesterolemia, unspecified Hemoglobin A1c Today R73.02 - Impaired glucose tolerance (oral) Prostate Specific Antigen Scr Today E78.00 - Pure hypercholesterolemia, unspecified Thyroid Stimulating Hormone Today E78.00 - Pure hypercholesterolemia, unspecified Vitamin B12 and Folate Today E78.00 - Pure hypercholesterolemia, unspecified Lipid Panel Today E78.00 - Pure hypercholesterolemia, unspecified Referrals Ophthalmology Referral H53.9 - Unspecified visual disturbance Dermatology Referral L30.9 - Dermatitis, unspecified Medications: Refilled clonazepam 0.5 mg PO BEDTIME PRN 30 tabs 2RF anxi 30 days F41.9 - Anxiety disorder, unspecified Coding Level of Care Code Est Pt Level 4 (07293) Diagnoses Hypercholesterolemia E78.00 Irritable bowel syndrome with diarrhea K58.0 Irritable bowel syndrome type: with diarrhea Gastroesophageal reflux disease without esophagitis K21.9 Esophagitis presence: without esophagitis Overweight (BMI 25.0-29.9) E66.3 Fatty liver K76.0 Impaired glucose tolerance R73.02 Generalized anxiety disorder with panic attacks F41.1; F41.0 Vision changes H53.9
[2023-04-02 16:03] VITALS: BP 136/82
== END 2023-04-02 16:14 | disposition home or self-care (01) ==
PROVIDERS: PCP Internal Medicine; Visit Provider Internal Medicine
DX: E78.00 Pure hypercholesterolemia, unspecified (principal); K58.0 Irritable bowel syndrome with diarrhea; K21.9 Gastro-esophageal reflux disease without esophagitis; E66.3 Overweight; K76.0 Fatty (change of) liver, not elsewhere classified; R73.02 Impaired glucose tolerance (oral); F41.1 Generalized anxiety disorder; F41.0 Panic disorder [episodic paroxysmal anxiety]; H53.9 Unspecified visual disturbance
CPT/HCPCS: 99214

== ENCOUNTER 2023-04-02 16:17 | Outpatient (REF) | payer OTHER, SELFPAY ==
[2023-04-02 16:28] LABS: MANUAL DIFF FLAG NO
[2023-04-02 17:33] LABS: Basophils Percent Auto 0.5 % (0-2); Eosinophils Absolute Auto 0.1 X10*3/uL (0.0-0.4); Eosinophils Percent Auto 0.8 % (0-4); Hematocrit 47.5 % (42.0-52.0); Hemoglobin 16.3 g/dl (14.0-18.0); Imm Gran Abs Auto 0.02 X10*3/uL (0.00-0.03); Imm Gran Pct Auto 0.2 % (0.0-0.4); Lymphocytes Absolute Auto 2.4 X10*3/uL (1.2-4.9); Lymphocytes Percent Auto 28.5 % (20-40); Mean Corpuscular HGB Conc 34.3 g/dl (31.0-36.0); Mean Corpuscular Hemoglobin 30.3 pg (27.0-33.0); Mean Corpuscular Volume 88.3 fL (80.0-98.0); Mean Platelet Volume 12.3 fL (9.4-12.4); Monocytes Absolute Auto 0.9 X10*3/uL (0.1-1.2); Monocytes Percent Auto 10.5 % (2-11); Neutrophils Percent Auto 59.5 % (45-73); Platelet Count 170 X10*3/uL (160-400); Red Blood Count 5.38 X10*6/uL (4.60-5.80); Red Cell Distribution Width 11.7 % (11.0-16.0); White Blood Count 8.4 X10*3/uL (4.8-10.8)
[2023-04-02 17:56] LABS: Estimated Average Glucose 108 mg/dL; Hemoglobin A1c % 5.4 % (<6.0)
[2023-04-02 18:25] LABS: Alanine Aminotransferase 24 U/L (0-40); Albumin Level 4.7 g/dL (3.5-5.0); Alkaline Phosphatase 73 U/L (39-117); Anion Gap 13 (12-20); Aspartate Amino Transferase 21 U/L (5-37); Bilirubin Total 0.8 mg/dL (0.0-1.0); Blood Urea Nitrogen 21 mg/dL (9-16); Calcium 9.9 mg/dL (8.4-10.2); Carbon Dioxide 28 mmol/L (22-29); Chloride 103 mmol/L (96-108); Cholesterol 249 mg/dL (<200); Estimated Glomerular Filt Rate > 60; Glucose Random 95 mg/dL (60-115); HDL Cholesterol 48 mg/dL (>40); LDL Cholesterol Calculated 146 mg/dL (<100); Potassium 4.2 mmol/L (3.3-5.1); Sodium 140 mmol/L (135-145); Total Protein 8.5 g/dL (6.5-8.0); Triglycerides 278 mg/dL (<150)
[2023-04-02 18:41] LABS: Free T4 (Free Thyroxine) 1.17 ng/dL (0.71-1.85)
[2023-04-02 18:57] LABS: Folate 11.6 ng/mL (> or = 4.0); Prostate Specific Antigen Scr 0.13 ng/mL (<0.05-4.0); Vitamin B12 411 pg/mL (200-900)
== END 2023-04-02 16:18 | disposition home or self-care (01) ==
LOC: HO.LAB 16:17
PROVIDERS: PCP Internal Medicine; Visit Provider Internal Medicine
DX: Z12.5 Encounter for screening for malignant neoplasm of prostate (principal); R73.02 Impaired glucose tolerance (oral); E78.00 Pure hypercholesterolemia, unspecified
CPT/HCPCS: 36415; 80053; 80061; 82607; 82746; 83036; 84153; 84439; 84443; 85025

== ENCOUNTER 2023-07-08 15:26 | Outpatient (AMB) | payer OTHER, SELFPAY ==
--- NOTE | 2023-07-08 15:33 | MHC.PC.OV ---
Vital Signs 07/08/23 15:35 Height 5 ft 9 in Weight 196 lb 4 oz BMI 29.0 BP 100/70 Blood Pressure Location Lt brachial Position Sitting Pulse 61 Pulse Source Pulse Oximeter Pulse Oximetry (%) 96 Oxygen Delivery Method Room Air Intake Visit Reasons: EZIO, IBS Intake Note: Patient is here to follow up on EZIO, IBS. Boat Buffer Plastic Required: No Tank Assembler: Not Required per policy Accompanied by: Self / Same As Patient Allergies lactose [LACTOSE] Adverse Reaction (Severe, Verified 07/08/23 15:35) TRIGGERS IBS Tobacco use date assessed: 07/08/23 Dental Screening Dental Screen Date: 07/08/23 Did you have a dental visit in the last 12 months?: Yes Did you have a dental problem in the last 6 months where you did not have access to dental care?: No Was dental information given to patient?: Patient has dentist HPI EZIO, IBS HPI Details 57-year-old overweight male with a history of hypercholesterolemia GERD irritable bowel syndrome impaired glucose tolerance generalized anxiety disorder coming in for follow-up. Last seen in March 2023. Patient is up-to-date with colonoscopy September 2018. Been eating better and exercising regularly discussed also limiting the egg yolks. [facility] Medical History (Updated 04/02/23 @ 16:08 by Danii Caldera MD) Screening for prostate cancer Obesity (BMI 30-39.9) Overweight (BMI 25.0-29.9) Fatty liver Thrombocytopenia Vitamin D deficiency GERD (gastroesophageal reflux disease) Irritable bowel syndrome Erectile dysfunction Hypercholesterolemia Surgical History History of colonoscopy History of surgery Family History Father Lung cancer Mother Hypertension Diabetes Social History (Updated 07/08/23 @ 15:38 by MARIFER Montague) Housing: Apartment Alcohol intake: current Alcohol intake frequency: a few times a month Patient Tobacco Use Status: Former Tobacco user Tobacco use type: Cigarette e-Cigarette/Vaping Use: Never Used Second Hand Smoke Exposure: Yes service: No Current occupational status: unemployed Cognitive needs: No Hearing needs: No Vision needs: Yes Questionnaire PHQ-9 Over the last 2 weeks, how often have you been bothered by any of the following problems? 1. Little interest or pleasure in doing things: not at all 2. Feeling down, depressed, or hopeless: not at all 3. Trouble falling or staying asleep, or sleeping too much: not at all 4. Feeling tired or having little energy: not at all 5. Poor appetite or overeating: not at all 6. Feeling bad about yourself - or that you are a failure or have let yourself or your family down: not at all 7. Trouble concentrating on things, such as reading the newspaper or watching television: not at all 8. Moving or speaking so slowly that other people could have noticed. Or the opposite - being so fidgety or restless that you have been moving around a lot more than usual: not at all 9. Thoughts that you would be better off or of hurting yourself in some way: not at all Total score: 0 Depression Screening Interpretation: Negative Depression Screening Done: Yes Source: Developed by Drs. Jimenez Pelayo, Rhoda Hawley, Lennox Sin and colleagues, with an educational alaina from [employer]. Thrive Questionnaire Date Thrive assessed: 07/08/23 I am a: Patient What is your living situation today?: I have a steady place to live Within the past 12 months, did the food you bought not last and you didn't have the money to get more?: Never true Within the past 12 months, did you worry whether your food would run out before you got money to buy more?: Never true Do you have trouble paying for medicines?: No Do you have trouble getting transportation to medical appointments?: No Do you have trouble paying your heating and electricity bill?: No Do you have trouble taking care of your child, family member or friend?: No Do you have trouble with day-to-day activities such as bathing, preparing meals, shopping, managing finances, etc.?: No Are you currently unemployed and looking for a job?: No Are you interested in more education?: No Currently or been in a relationship where the following occur: no concerns reported THRIVE Score: 0 AUDIT C Alcohol Use Questionnaire (AUDIT-C) 1. How often do you have a drink containing alcohol?: Monthly or less 2. How many drinks containing alcohol do you have on a typical day when you are drinking?: 1 or 2 Total Score: 1 EZIO-7 AMB Questionnaire EZIO-7 Date EZIO - 7 assessed: 07/08/23 Feeling nervous, anxious, or on edge: 2 = More than half the days Not being able to stop or control worryin = Not at all Worrying too much about different things: 0 = Not at all Trouble relaxin = Not at all Being so restless that it is hard to sit still: 0 = Not at all Becoming easily annoyed or irritable: 0 = Not at all Feeling afraid as if something awful might happen: 0 = Not at all Total EZIO-7 score (0-4 normal; 5-9 mild; 10-14 moderate; 15-21 severe): 2 Source: Developed by Drs. Jimenez Pelayo, Rhoda Hawley, Lennox Sin and colleagues, with an educational alaina from [employer]. Physical exam (Primary Care) Vital Signs: Last Vital Signs Pulse 61 07/08/23 15:35 BP 100/70 07/08/23 15:35 Pulse Ox 96 07/08/23 15:35 Oxygen Delivery Method Room Air 07/08/23 15:35 BMI result Body Mass Index 29.0 Tobacco/Smoking Status: Tobacco use Status Tobacco use date assessed 07/08/23 07/08/23 15:41 Patient Tobacco Use Status Former Tobacco user 07/08/23 15:41 Tobacco use type Cigarette 07/08/23 15:41 e-Cigarette/Vaping Use Never Used 07/08/23 15:41 PHQ-9: PHQ-9 Score PHQ-9: Total score 0 07/08/23 15:41 Depression Screening Interpretation: Negative Thrive Assessment: Date of Thrive Assessment Date Thrive assessed 07/08/23 07/08/23 15:41 Currently or been in a relationship where the following occur: no concerns reported Const General: alert; No acute distress Eyes Conjunctivae: conjunctivae normal Resp Auscultation: clear to auscultation bilaterally Cardio Rate: regular rate Rhythm: regular rhythm GI Inspection: Yes normal to inspection Extrem General: Yes normal to inspection and No edema Assessment and Plan Assessment & Plan (1) Overweight (BMI 25.0-29.9): Code(s): E66.3 - Overweight Plan: Diet and exercise discussed with the patient that notes increasing weight (2) Impaired glucose tolerance: Code(s): R73.02 - Impaired glucose tolerance (oral) Plan: Decrease the amount of carbohydrate intake, pasta, bread, rice and potatoes are all sugar and that is aside from all the sweet stuff, remember that fruits are good but they are Sweet also. (3) Hypercholesterolemia: Code(s): E78.00 - Pure hypercholesterolemia, unspecified Plan: Avoid fried foods, chicken skin, eggs, butter margarine, pastries and meat. Be it pork or beef they have a lot of cholesterol LDL goal of less than 130 and triglyceride of less than 150. Discussed with the patient the increasing numbers (4) GERD (gastroesophageal reflux disease): Code(s): K21.9 - Gastro-esophageal reflux disease without esophagitis Qualifiers: Esophagitis presence: without esophagitis Qualified Code(s): K21.9 - Gastro-esophageal reflux disease without esophagitis Plan: Avoid the foods that causes that usually spicy foods, tomato products, juices, coffee, soda and foods that your sensitive to. After eating do not lie down, allow 3-4 hours before in lie down. And keep the head of bed above 30 degrees to avoid the acid from going up. (5) Irritable bowel syndrome: Code(s): K58.9 - Irritable bowel syndrome without diarrhea Qualifiers: Irritable bowel syndrome type: with diarrhea Qualified Code(s): K58.0 - Irritable bowel syndrome with diarrhea Plan: Continue with present medication and follows up with Gastroenterology (6) Generalized anxiety disorder with panic attacks: Comment: counselling [facility] counselling Code(s): F41.1 - Generalized anxiety disorder; F41.0 - Panic disorder [episodic paroxysmal anxiety] Plan: Continue with counseling and therapy Orders: Orders Lipid Panel 3 Months E78.00 - Pure hypercholesterolemia, unspecified Comprehensive Met. Panel 3 Months E78.00 - Pure hypercholesterolemia, unspecified Hemoglobin A1c 3 Months R73.02 - Impaired glucose tolerance (oral) Coding Level of Care Code Est Pt Level 4 (92344) Diagnoses Overweight (BMI 25.0-29.9) E66.3 Impaired glucose tolerance R73.02 Hypercholesterolemia E78.00 Gastroesophageal reflux disease without esophagitis K21.9 Esophagitis presence: without esophagitis Irritable bowel syndrome with diarrhea K58.0 Irritable bowel syndrome type: with diarrhea Generalized anxiety disorder with panic attacks F41.1; F41.0
[2023-07-08 15:35] VITALS: BP 100/70; PULSE 61; O2SAT 96; BMI 29.0
== END 2023-07-08 15:57 | disposition home or self-care (01) ==
PROVIDERS: PCP Internal Medicine; Visit Provider Internal Medicine
DX: E66.3 Overweight (principal); R73.02 Impaired glucose tolerance (oral); E78.00 Pure hypercholesterolemia, unspecified; K21.9 Gastro-esophageal reflux disease without esophagitis; K58.0 Irritable bowel syndrome with diarrhea; F41.1 Generalized anxiety disorder; F41.0 Panic disorder [episodic paroxysmal anxiety]
CPT/HCPCS: 99214

== ENCOUNTER 2023-10-01 13:28 | Outpatient (REF) | payer OTHER, SELFPAY ==
[2023-10-01 13:56] LABS: Estimated Average Glucose 105 mg/dL; Hemoglobin A1C 151.6275 umol/L; Hemoglobin A1c % 5.3 % (<6.0)
[2023-10-01 14:16] LABS: Alanine Aminotransferase 15 U/L (0-40); Albumin Level 4.5 g/dL (3.5-5.0); Alkaline Phosphatase 69 U/L (39-117); Anion Gap 13 (12-20); Aspartate Amino Transferase 19 U/L (5-37); Bilirubin Total 0.8 mg/dL (0.0-1.0); Blood Urea Nitrogen 20 mg/dL (9-16); Calcium 9.6 mg/dL (8.4-10.2); Carbon Dioxide 25 mmol/L (22-29); Chloride 108 mmol/L (96-108); Cholesterol 212 mg/dL (<200); Estimated Glomerular Filt Rate > 60; Glucose Random 129 mg/dL (60-115); HDL Cholesterol 50 mg/dL (>40); LDL Cholesterol Calculated 130 mg/dL (<100); Potassium 4.4 mmol/L (3.3-5.1); Sodium 142 mmol/L (135-145); Total Protein 8.1 g/dL (6.5-8.0); Triglycerides 161 mg/dL (<150)
== END 2023-10-01 13:29 | disposition home or self-care (01) ==
LOC: HO.LAB 13:28
PROVIDERS: PCP Internal Medicine; Visit Provider Internal Medicine
DX: E78.00 Pure hypercholesterolemia, unspecified (principal); R73.02 Impaired glucose tolerance (oral)
CPT/HCPCS: 36415; 80053; 80061; 83036

== ENCOUNTER 2023-10-08 15:54 | Outpatient (AMB) | payer OTHER, SELFPAY ==
[2023-10-08 15:56] VITALS: BP 110/76; PULSE 63; O2SAT 96; BMI 27.9
--- NOTE | 2023-10-08 15:56 | A.OFFPC_ITS ---
Vital Signs 10/08/23 15:56 Height 5 ft 9 in Weight 189 lb BMI 27.9 BP 110/76 Blood Pressure Location Lt brachial Position Sitting Pulse 63 Pulse Source Pulse Oximeter Pulse Oximetry (%) 96 Oxygen Delivery Method Room Air Intake Visit Reasons: EZIO, Cholesterol Rhit Required: No Allergies lactose [LACTOSE] Adverse Reaction (Severe, Verified 10/08/23 16:01) TRIGGERS IBS Tobacco use date assessed: 10/08/23 Dental Screening Dental Screen Date: 07/08/23 HPI EZIO, Cholesterol HPI Details 58-year-old overweight male(noted) 7 lb weight loss with impaired glucose tolerance hypercholesterolemia GERD irritable bowel syndrome generalized anxiety disorder last seen in 07/24/2023. [facility] Medical History (Updated 10/08/23 @ 16:35 by Danii Caldera MD) Screening for prostate cancer Obesity (BMI 30-39.9) Overweight (BMI 25.0-29.9) Fatty liver Thrombocytopenia Vitamin D deficiency GERD (gastroesophageal reflux disease) Irritable bowel syndrome Erectile dysfunction Hypercholesterolemia Surgical History History of colonoscopy History of surgery Family History Father Lung cancer Mother Hypertension Diabetes Social History (Updated 07/08/23 @ 15:38 by MARIFER Montague) Housing: Apartment Alcohol intake: current Alcohol intake frequency: a few times a month Tobacco use type: Cigarette e-Cigarette/Vaping Use: Never Used Second Hand Smoke Exposure: Yes service: No Current occupational status: unemployed Cognitive needs: No Hearing needs: No Vision needs: Yes Questionnaire PHQ-9 Over the last 2 weeks, how often have you been bothered by any of the following problems? 1. Little interest or pleasure in doing things: not at all 2. Feeling down, depressed, or hopeless: not at all 3. Trouble falling or staying asleep, or sleeping too much: not at all 4. Feeling tired or having little energy: not at all 5. Poor appetite or overeating: not at all 6. Feeling bad about yourself - or that you are a failure or have let yourself or your family down: not at all 7. Trouble concentrating on things, such as reading the newspaper or watching television: not at all 8. Moving or speaking so slowly that other people could have noticed. Or the opposite - being so fidgety or restless that you have been moving around a lot more than usual: not at all 9. Thoughts that you would be better off or of hurting yourself in some way: not at all Total score: 0 Depression Screening Interpretation: Negative Depression Screening Done: Yes 49164 - PHQ-9 Billing: Yes Source: Developed by Drs. Jimenez Pelayo, Lennox Pineda and colleagues, with an educational alaina from [employer]. Thrive Questionnaire Date Thrive assessed: 07/08/23 I am a: Patient What is your living situation today?: I have a steady place to live Within the past 12 months, did the food you bought not last and you didn't have the money to get more?: Never true Within the past 12 months, did you worry whether your food would run out before you got money to buy more?: Never true Do you have trouble paying for medicines?: No Do you have trouble getting transportation to medical appointments?: No Do you have trouble paying your heating and electricity bill?: No Do you have trouble taking care of your child, family member or friend?: No Do you have trouble with day-to-day activities such as bathing, preparing meals, shopping, managing finances, etc.?: No Are you currently unemployed and looking for a job?: No Are you interested in more education?: No Please select the resources that you would like help with: None Currently or been in a relationship where the following occur: no concerns reported THRIVE Score: 0 AUDIT C Alcohol Use Questionnaire (AUDIT-C) 1. How often do you have a drink containing alcohol?: Monthly or less 2. How many drinks containing alcohol do you have on a typical day when you are drinking?: 1 or 2 3. How often do you have six or more drinks on one occasion?: Never Total Score: 1 EZIO-7 AMB Questionnaire EZIO-7 Date EZIO - 7 assessed: 07/08/23 Source: Developed by Drs. Jimenez Pelayo, Lennox Pineda and colleagues, with an educational alaina from [employer]. Physical exam (Primary Care) Vital Signs: Last Vital Signs Pulse 63 10/08/23 15:56 BP 110/76 10/08/23 15:56 Pulse Ox 96 10/08/23 15:56 Oxygen Delivery Method Room Air 10/08/23 15:56 BMI result Body Mass Index 27.9 Tobacco/Smoking Status: Tobacco use Status Tobacco use date assessed 10/08/23 10/08/23 15:57 Patient Tobacco Use Status 10/08/23 16:04 Tobacco use type Cigarette 10/08/23 15:57 e-Cigarette/Vaping Use Never Used 10/08/23 15:57 PHQ-9: PHQ-9 Score PHQ-9: Total score 0 10/08/23 15:57 Depression Screening Interpretation: Negative Thrive Assessment: Date of Thrive Assessment Date Thrive assessed 07/08/23 10/08/23 15:57 Currently or been in a relationship where the following occur: no concerns reported Const General: alert; No acute distress Eyes Conjunctivae: conjunctivae normal Resp Auscultation: clear to auscultation bilaterally Cardio Rate: regular rate Rhythm: regular rhythm GI Inspection: Yes normal to inspection Extrem General: Yes normal to inspection and No edema Assessment and Plan Assessment & Plan (1) Impaired glucose tolerance: Code(s): R73.02 - Impaired glucose tolerance (oral) Plan: Decrease the amount of carbohydrate intake, pasta, bread, rice and potatoes are all sugar and that is aside from all the sweet stuff, remember that fruits are good but they are Sweet also. Hemoglobin A1c is in the normal range. (2) GERD (gastroesophageal reflux disease): Code(s): K21.9 - Gastro-esophageal reflux disease without esophagitis Qualifiers: Esophagitis presence: without esophagitis Qualified Code(s): K21.9 - Gastro-esophageal reflux disease without esophagitis Plan: Avoid the foods that causes that usually spicy foods, tomato products, juices, coffee, soda and foods that your sensitive to. After eating do not lie down, allow 3-4 hours before in lie down. And keep the head of bed above 30 degrees to avoid the acid from going up. (3) Hypercholesterolemia: Code(s): E78.00 - Pure hypercholesterolemia, unspecified Plan: Avoid fried foods, chicken skin, eggs, butter margarine, pastries and meat. Be it pork or beef they have a lot of cholesterol LDL goal of less than 130 and triglyceride of less than 150 patient's blood work is better 09/23/2023 (4) Generalized anxiety disorder with panic attacks: Comment: counselling [facility] counselling Code(s): F41.1 - Generalized anxiety disorder; F41.0 - Panic disorder [episodic paroxysmal anxiety] Plan: Continue with counseling and therapy (5) Irritable bowel syndrome: Code(s): K58.9 - Irritable bowel syndrome without diarrhea Qualifiers: Irritable bowel syndrome type: with diarrhea Qualified Code(s): K58.0 - Irritable bowel syndrome with diarrhea Plan: Continue with symptomatic treatment (6) Overweight (BMI 25.0-29.9): Code(s): E66.3 - Overweight Plan: Continue with losing weight with diet and exercise (7) Vision changes: Code(s): H53.9 - Unspecified visual disturbance Plan: Ophthalmology referral done (8) Rosacea: Code(s): L71.9 - Rosacea, unspecified Plan: MetroCream/gel sent in Orders: Referrals Ophthalmology Referral H53.9 - Unspecified visual disturbance Medications: New metronidazole 1% (Metrogel) 1 appl topical BEDTIME 60 grams 0RF L71.9 - Rosacea, unspecified Refilled propranolol 20 mg PO .QD 90 days 90 tabs 2RF F41.9 - Anxiety disorder, unspecified diphenoxylate-atropine 2.5-0.025 mg 1 tab PO TID 90 days 270 tabs 2RF K58.0 - Irritable bowel syndrome with diarrhea clonazepam 0.5 mg PO BEDTIME 30 days PRN 30 tabs 2RF anxi F41.9 - Anxiety disorder, unspecified buspirone 10 mg PO DAILY 90 days 90 tabs 2RF Discontinued triamcinolone acetonide 0.025% Discontinued Reason: Change Referral Type 1 appl topical BID 45 grams 0RF L30.9 - Dermatitis, unspecified Coding Level of Care Code Est Pt Level 4 (26387) Diagnoses Impaired glucose tolerance R73.02 Gastroesophageal reflux disease without esophagitis K21.9 Esophagitis presence: without esophagitis Hypercholesterolemia E78.00 Generalized anxiety disorder with panic attacks F41.1; F41.0 Irritable bowel syndrome with diarrhea K58.0 Irritable bowel syndrome type: with diarrhea Overweight (BMI 25.0-29.9) E66.3 Vision changes H53.9 Rosacea L71.9
== END 2023-10-08 16:43 | disposition home or self-care (01) ==
PROVIDERS: PCP Internal Medicine; Visit Provider Internal Medicine
DX: R73.02 Impaired glucose tolerance (oral) (principal); K21.9 Gastro-esophageal reflux disease without esophagitis; E78.00 Pure hypercholesterolemia, unspecified; F41.1 Generalized anxiety disorder; F41.0 Panic disorder [episodic paroxysmal anxiety]; K58.0 Irritable bowel syndrome with diarrhea; E66.3 Overweight; H53.9 Unspecified visual disturbance; L71.9 Rosacea, unspecified
CPT/HCPCS: 99214

== ENCOUNTER 2024-01-02 16:11 | Outpatient (AMB) | payer OTHER, SELFPAY ==
[2024-01-02 16:14] VITALS: BP 112/72; PULSE 67; O2SAT 93; BMI 27.8
--- NOTE | 2024-01-02 16:14 | AM.OFFVISMDC ---
Intake Vital Signs 01/02/24 16:14 Height 5 ft 9 in Weight 85.275 kg BMI 27.8 BP 112/72 Blood Pressure Location Lt brachial Position Sitting Pulse 67 Pulse Source Pulse Oximeter Pulse Oximetry (%) 93 Oxygen Delivery Method Room Air Intake Visit Reasons: JF [id number] Lathe Puller Required: No Accompanied by: Self / Same As Patient Allergies lactose [LACTOSE] Adverse Reaction (Severe, Verified 01/02/24 16:15) TRIGGERS IBS Medication List - Last Reconciled 01/02/24 by Danii Caldera MD buspirone 10 mg PO DAILY 90 days clonazepam 0.5 mg PO BEDTIME PRN 30 days clotrimazole 1% 1 appl topical BID 4 weeks diphenoxylate-atropine 2.5-0.025 mg 1 tab PO TID 90 days miconazole nitrate 2% (Zeasorb AF) 1 appl topical BID propranolol 20 mg PO .QD 90 days HPI SWV G0439 HPI Details 58-year-old overweight male with impaired glucose tolerance GERD hypercholesterolemia irritable bowel syndrome generalized anxiety disorder coming in for annual well visit last seen in 10/24/2023. Patient's last colonoscopy was in 2018. [facility] Medical History (Updated 01/02/24 @ 16:20 by Danii Caldera MD) Screening for prostate cancer Obesity (BMI 30-39.9) Overweight (BMI 25.0-29.9) Fatty liver Thrombocytopenia Vitamin D deficiency GERD (gastroesophageal reflux disease) Irritable bowel syndrome Erectile dysfunction Hypercholesterolemia Surgical History History of colonoscopy History of surgery Family History (Updated 01/02/24 @ 16:36 by Danii Caldera MD) Father Lung cancer Myocardial infarct Mother Hypertension Diabetes Brother Bone cancer Social History (Updated 01/02/24 @ 16:39 by Danii Caldera MD) Housing: Apartment Alcohol intake: current Alcohol intake frequency: a few times a month Comment: 3x a week 1 drink Tobacco use type: Cigarette Years Smoked: quit 1995 2.5 pack- , occ marijuana vape e-Cigarette/Vaping Use: Never Used Second Hand Smoke Exposure: Yes service: No Current occupational status: unemployed Cognitive needs: No Hearing needs: No Vision needs: Yes Questionnaire Medicare Wellness Checkup What gender do you identify with?: male During the past 4 weeks, how much have you been bothered by emotional problems such as feeling anxious, depressed, irritable, sad or downhearted, and blue?: not at all During the past 4 weeks, has your physical & emotional health limited your social activities with family, friends, neighbors, or groups?: not at all During the past 4 weeks, how much bodily pain have you generally had?: mild pain During the past 4 weeks, was someone available to help you if you needed & wanted help?: no, not at all During the past 4 weeks, what was the hardest physical activity you could do for at least 2 minutes?: moderate Can you get to places out of walking distance without help? (For eg., can you travel alone on buses, taxis or drive your car?): Yes Can you go shopping for groceries or clothes without someone's help?: Yes Can you prepare your own meals?: Yes Can you do your housework without help?: Yes Because of any health problems, do you need the help of another person with your personal care needs such as eating, bathing, dressing or getting around the house?: No Can you handle your own money without help?: Yes During the past 4 weeks, how would you rate your health in general?: good During the past 4 weeks how have things been going for you?: good & bad parts about equal Are you having difficulties driving your car?: no Do you always fasten your seat belt when you are in a car?: yes, sometimes During past 4 weeks, have you been bothered by the following: never: Falling or dizzy when standing up, Sexual problems?, Trouble eating well?, Teeth or denture problems?, Problems using the telephone? and Tiredness or fatigue? Have you fallen 2 or more times in the past year?: No Are you afraid of falling?: No Are you a smoker?: no During the past 4 weeks, how many drinks of wine, beer, or other alcoholic beverages did you have?: 10 or more per week Do you exercise for about 20 minutes 3 or more times a week?: yes, most of the time Have you been given information to help with the following?: no: Hazards in your house that might hurt you? and no: Keeping track of your medications? How often do you have trouble taking medicines the way you have been told to take them?: I always take medicine as prescribed How confident are you that you can control & manage most of your health problems?: very confident What is your race?: or origin or descent PHQ-9 Over the last 2 weeks, how often have you been bothered by any of the following problems? 1. Little interest or pleasure in doing things: not at all 2. Feeling down, depressed, or hopeless: several days 3. Trouble falling or staying asleep, or sleeping too much: not at all 4. Feeling tired or having little energy: not at all 5. Poor appetite or overeating: not at all 6. Feeling bad about yourself - or that you are a failure or have let yourself or your family down: several days 7. Trouble concentrating on things, such as reading the newspaper or watching television: not at all 8. Moving or speaking so slowly that other people could have noticed. Or the opposite - being so fidgety or restless that you have been moving around a lot more than usual: not at all 9. Thoughts that you would be better off or of hurting yourself in some way: not at all Total score: 2 Depression Screening Interpretation: Positive Depression Screening Done: Yes 41032 - PHQ-9 Billing: Yes Source: Developed by Drs. Jimenez Pelayo, Rhoda Hawley, Lennox Sin and colleagues, with an educational alaina from [employer]. Review of Systems Const Denies poor appetite and Denies weakness Eyes Denies no additional complaints ENT Reports Normal hearing present, Denies dizziness, Denies nasal congestion, Denies tinnitus and Denies sore throat Card Denies chest pain, Denies syncope, Denies rapid heart rate and Denies dyspnea Resp Denies cough and Denies dyspnea GI Denies change in stool character, Reports constipation, Denies diarrhea, Denies nausea and Denies vomiting Denies dysuria and Denies urinary frequency Neuro Reports Normal hearing present, Denies confusion, Denies dizziness, Denies syncope and Denies weakness Psych Denies confusion Physical Exam Vital Signs: Last Vital Signs Pulse 67 01/02/24 16:14 BP 112/72 01/02/24 16:14 Pulse Ox 93 01/02/24 16:14 Oxygen Delivery Method Room Air 01/02/24 16:14 BMI result Body Mass Index 27.8 Const General: No confusion Orientation/consciousness: No confusion HEENT Head: Yes normocephalic Ears: external ears normal and TM's normal bilaterally Face and sinus: Yes normal facial exam Mouth: moist mucous membranes Throat: Yes tonsils normal Eyes Conjunctivae: conjunctivae normal Pupils: Equal, round and reactive pupils present and Pupil accommodation reflex normal Direct Ophthalmoscopy: normal light reflex Neck Neck: No lymphadenopathy Thyroid: Thyroid normal Chest Chest palpation & inspection: normal inspection of the chest Resp Effort & Inspection: normal respiratory effort and no audible wheezes Auscultation: clear to auscultation bilaterally, no crackles, no wheezes and lung sounds not diminished Cardio Rate: regular rate Rhythm: regular rhythm Peripheral pulses: radial pulses present and dorsalis pedis present GI Other: guaiac negative and prostate N Palpation (GI): no masses Auscultation: normal bowel sounds and normoactive bowel sounds Male General Exam: Yes normal external exam Skin General skin exam: no rashes or lesions noted Rashes: no rashes Neuro General: No confusion Cranial nerves: Yes Equal, round and reactive pupils present and Yes Normal hearing present Cognition (Neuro): normal cognition Gait exam (Neuro): Normal gait present Motor exam (neuro): 5/5 motor strength present throughout Deep tendon reflexes (DTR's): Right brachioradialis reflex intensity grade: 2+, Left brachioradialis reflex intensity grade: 2+, Right patellar reflex intensity grade: 2+ and Left patellar reflex intensity grade: 2+ Extrem General: No edema Immunizations Boostrix Tdap 2.5 Lf unit-8 mcg-5 Lf/0.5 mL intramuscular syringe Performing Provider: Danii Caldera MD [facility] Administered by: MARIFER Child on 01/02/24 17:44 Dose Route Admin Location Dispensed Lot Number Expiration Date NDC [employer] Operator 0.5 mL IM Left Deltoid 0.5 mL [id number] 01/25/26 [id number] [employer] VIS Given Date VIS Provided VIS Publication Date 01/02/24 Single Vaccine 20 Eligibility Eligibility Date Funding Source Not [facility] Eligible 01/02/24 Private Assessment & Plan Assessment & Plan (1) Medicare annual wellness visit, subsequent: Code(s): Z00.00 - Encounter for general adult medical examination without abnormal findings Plan: Patient is advised to eat healthy, keep well hydrated, keep active and have adequate sleep. (2) Hypercholesterolemia: Code(s): E78.00 - Pure hypercholesterolemia, unspecified Plan: Avoid fried foods, chicken skin, eggs, butter margarine, pastries and meat. Be it pork or beef they have a lot of cholesterol LDL goal of less than 130 and triglyceride of less than 150 (3) Impaired glucose tolerance: Code(s): R73.02 - Impaired glucose tolerance (oral) Plan: Decrease the amount of carbohydrate intake, pasta, bread, rice and potatoes are all sugar and that is aside from all the sweet stuff, remember that fruits are good but they are Sweet also. (4) Overweight (BMI 25.0-29.9): Code(s): E66.3 - Overweight Plan: Diet and exercise (5) GERD (gastroesophageal reflux disease): Code(s): K21.9 - Gastro-esophageal reflux disease without esophagitis Qualifiers: Esophagitis presence: without esophagitis Qualified Code(s): K21.9 - Gastro-esophageal reflux disease without esophagitis Plan: Avoid the foods that causes that usually spicy foods, tomato products, juices, coffee, soda and foods that your sensitive to. After eating do not lie down, allow 3-4 hours before in lie down. And keep the head of bed above 30 degrees to avoid the acid from going up. (6) Fatty liver: Code(s): K76.0 - Fatty (change of) liver, not elsewhere classified Plan: Low-fat diet and exercise (7) Generalized anxiety disorder with panic attacks: Comment: counselling [facility] counselling Code(s): F41.1 - Generalized anxiety disorder; F41.0 - Panic disorder [episodic paroxysmal anxiety] Plan: Continue with present medication and counseling and therapy (8) Irritable bowel syndrome: Code(s): K58.9 - Irritable bowel syndrome without diarrhea Qualifiers: Irritable bowel syndrome type: with diarrhea Qualified Code(s): K58.0 - Irritable bowel syndrome with diarrhea Plan: Continue follow-up with Gastroenterology Orders: Orders Comprehensive Met. Panel 3 Months R73.02 - Impaired glucose tolerance (oral) Free T4 (Free Thyroxine) 3 Months R73.02 - Impaired glucose tolerance (oral) Thyroid Stimulating Hormone 3 Months R73.02 - Impaired glucose tolerance (oral) Lipid Panel 3 Months E78.00 - Pure hypercholesterolemia, unspecified, R73.02 - Impaired glucose tolerance (oral) Vitamin B12 and Folate 3 Months R73.02 - Impaired glucose tolerance (oral) Prostate Specific Antigen Scr 3 Months R73.02 - Impaired glucose tolerance (oral) Complete Blood Count Auto Diff 3 Months R73.02 - Impaired glucose tolerance (oral) Hemoglobin A1c 3 Months R73.02 - Impaired glucose tolerance (oral) TDaP Immunization Today Z23 - Encounter for immunization Referrals Dermatology Referral L30.9 - Dermatitis, unspecified Medications: New Boostrix Tdap (diphth,pertus(acell),tetanus) 0.5 mL IM ONCE 0.5 mL 0RF NS Z23 - Encounter for immunization Quality Reporting (2019) Depression/Bipolar (159/160/161/177) PHQ-9: Total score: 2 Coding Level of Care Code Medicare Subsequent (G0439) Diagnoses Medicare annual wellness visit, subsequent Z00.00 Hypercholesterolemia E78.00 Impaired glucose tolerance R73.02 Overweight (BMI 25.0-29.9) E66.3 Gastroesophageal reflux disease without esophagitis K21.9 Esophagitis presence: without esophagitis Fatty liver K76.0 Generalized anxiety disorder with panic attacks F41.1; F41.0 Irritable bowel syndrome with diarrhea K58.0 Irritable bowel syndrome type: with diarrhea
== END 2024-01-02 17:01 | disposition home or self-care (01) ==
PROVIDERS: PCP Internal Medicine; Visit Provider Internal Medicine
DX: Z00.00 Encounter for general adult medical examination without abnormal findings (principal); E78.00 Pure hypercholesterolemia, unspecified; R73.02 Impaired glucose tolerance (oral); Z23 Encounter for immunization; E66.3 Overweight; K21.9 Gastro-esophageal reflux disease without esophagitis; K76.0 Fatty (change of) liver, not elsewhere classified; F41.1 Generalized anxiety disorder; F41.0 Panic disorder [episodic paroxysmal anxiety]; K58.0 Irritable bowel syndrome with diarrhea
CPT/HCPCS: 90471; 90715; G0439

== ENCOUNTER 2024-02-24 16:56 | Outpatient (AMB) | payer OTHER, SELFPAY ==
[2024-02-24 17:26] VITALS: BP 116/72; PULSE 62; O2SAT 93; BMI 27.5
--- NOTE | 2024-02-24 17:26 | MHC.PC.OV ---
Vital Signs 02/24/24 17:26 Height 5 ft 9 in Weight 186 lb 6 oz BMI 27.5 BP 116/72 Blood Pressure Location Lt brachial Position Sitting Pulse 62 Pulse Source Pulse Oximeter Pulse Oximetry (%) 93 Oxygen Delivery Method Room Air Intake Visit Reasons: IBS, EZIO Deskidding Machine Operator Required: No Accompanied by: Self / Same As Patient Allergies lactose [LACTOSE] Adverse Reaction (Severe, Verified 02/24/24 17:26) TRIGGERS IBS Tobacco use date assessed: 02/24/24 Dental Screening Dental Screen Date: 02/24/24 Did you have a dental visit in the last 12 months?: Yes Did you have a dental problem in the last 6 months where you did not have access to dental care?: No Was dental information given to patient?: Patient has dentist HPI IBS, EZIO HPI Details 58-year-old overweight male with a history of hypercholesterolemia impaired glucose tolerance GERD fatty liver generalized anxiety disorder and irritable bowel syndrome last seen for annual wellness in January 02 2024. Patient's colonoscopy is up-to-date 2018. discussed about clonazepam- she cannot be driving with this. PAitent is asking for a higher amount and discussed that we cannot . [facility] Medical History (Updated 01/02/24 @ 16:20 by Danii Caldera MD) Screening for prostate cancer Obesity (BMI 30-39.9) Overweight (BMI 25.0-29.9) Fatty liver Thrombocytopenia Vitamin D deficiency GERD (gastroesophageal reflux disease) Irritable bowel syndrome Erectile dysfunction Hypercholesterolemia Surgical History History of colonoscopy History of surgery Family History Father Lung cancer Myocardial infarct Mother Hypertension Diabetes Brother Bone cancer Social History (Updated 01/02/24 @ 16:39 by Danii Caldera MD) Housing: Apartment Alcohol intake: current Alcohol intake frequency: a few times a month Comment: 3x a week 1 drink Tobacco use type: Cigarette Years Smoked: quit 1995 2.5 pack- , occ marijuana vape e-Cigarette/Vaping Use: Never Used Second Hand Smoke Exposure: Yes service: No Current occupational status: unemployed Cognitive needs: No Hearing needs: No Vision needs: Yes Questionnaire PHQ-9 Over the last 2 weeks, how often have you been bothered by any of the following problems? 1. Little interest or pleasure in doing things: not at all 2. Feeling down, depressed, or hopeless: several days 3. Trouble falling or staying asleep, or sleeping too much: not at all 4. Feeling tired or having little energy: not at all 5. Poor appetite or overeating: not at all 6. Feeling bad about yourself - or that you are a failure or have let yourself or your family down: several days 7. Trouble concentrating on things, such as reading the newspaper or watching television: not at all 8. Moving or speaking so slowly that other people could have noticed. Or the opposite - being so fidgety or restless that you have been moving around a lot more than usual: not at all 9. Thoughts that you would be better off or of hurting yourself in some way: not at all Total score: 2 Depression Screening Interpretation: Positive Depression Screening Done: Yes 12591 - PHQ-9 Billing: Yes Source: Developed by Drs. Jimenez Pelayo, Rhoda Hawley, Lennox Sin and colleagues, with an educational alaina from [employer]. Thrive Questionnaire Date Thrive assessed: 02/24/24 I am a: Patient What is your living situation today?: I have a steady place to live Within the past 12 months, did the food you bought not last and you didn't have the money to get more?: Never true Within the past 12 months, did you worry whether your food would run out before you got money to buy more?: Never true Do you have trouble paying for medicines?: No Do you have trouble getting transportation to medical appointments?: No Do you have trouble paying your heating and electricity bill?: No Do you have trouble taking care of your child, family member or friend?: No Do you have trouble with day-to-day activities such as bathing, preparing meals, shopping, managing finances, etc.?: No Are you currently unemployed and looking for a job?: No Are you interested in more education?: No Please select the resources that you would like help with: None Currently or been in a relationship where the following occur: No concerns reported THRIVE Score: 0 AUDIT C Alcohol Use Questionnaire (AUDIT-C) 1. How often do you have a drink containing alcohol?: Monthly or less 2. How many drinks containing alcohol do you have on a typical day when you are drinking?: 1 or 2 3. How often do you have six or more drinks on one occasion?: Never Total Score: 1 EZIO-7 AMB Questionnaire EZIO-7 Date EZIO - 7 assessed: 02/24/24 Feeling nervous, anxious, or on edge: 0 = Not at all Not being able to stop or control worryin = Not at all Worrying too much about different things: 0 = Not at all Trouble relaxin = Not at all Being so restless that it is hard to sit still: 0 = Not at all Becoming easily annoyed or irritable: 0 = Not at all Feeling afraid as if something awful might happen: 0 = Not at all Total EZIO-7 score (0-4 normal; 5-9 mild; 10-14 moderate; 15-21 severe): 0 Source: Developed by Drs. Jimenez Pelayo, Rhoda Hawley, Lennox Sin and colleagues, with an educational alaina from [employer]. Physical exam (Primary Care) Vital Signs: Oxygen Delivery Method Room Air 02/24/24 17:26 Tobacco/Smoking Status: Tobacco use Status Tobacco use date assessed 10/08/23 10/08/23 15:57 Tobacco use type Cigarette 01/02/24 16:39 e-Cigarette/Vaping Use Never Used 01/02/24 16:39 Depression Screening Interpretation: Positive Thrive Assessment: Date of Thrive Assessment Date Thrive assessed 07/08/23 10/08/23 15:57 Currently or been in a relationship where the following occur: No concerns reported Const General: alert; No acute distress Eyes Conjunctivae: conjunctivae normal Resp Auscultation: clear to auscultation bilaterally Cardio Rate: regular rate Rhythm: regular rhythm GI Inspection: Yes normal to inspection Extrem General: Yes normal to inspection and No edema Office Procedures Flu Questionnaire Does the patient have a severe egg allergy?: No Does the patient have severe life threatening allergies?: No Does the patient have a fever or illness today?: No Has the patient ever had Guillain-Tivoli Syndrome?: No Has the patient ever had any past reaction to a flu shot?: No Immunizations Fluarix Triv [id number] (PF) 45 mcg (15 mcg x 3)/0.5 mL IM syringe Performing Provider: Danii Caldera MD Performing Location: [facility] Administered by: MARIFER Gilbert on 02/24/24 17:37 Dose Route Admin Location Dispensed Lot Number Expiration Date NDC Events Traffic Controller 0.5 mL IM Left Deltoid 0.5 mL [id number] 11/02/24 [id number] [employer] VIS Given Date VIS Provided VIS Publication Date 02/24/24 Single Vaccine 20 Eligibility Eligibility Date Funding Source Not [facility] Eligible 02/24/24 Private Coding Level of Care Code Est Pt Level 4 (64440) Diagnoses Hypercholesterolemia E78.00 Irritable bowel syndrome with diarrhea K58.0 Irritable bowel syndrome type: with diarrhea Gastroesophageal reflux disease without esophagitis K21.9 Esophagitis presence: without esophagitis Impaired glucose tolerance R73.02 Overweight (BMI 25.0-29.9) E66.3 Generalized anxiety disorder with panic attacks F41.1; F41.0 Assessment & Plan Assessment & Plan (1) Hypercholesterolemia: Code(s): E78.00 - Pure hypercholesterolemia, unspecified Category: Medical Plan: Avoid fried foods, chicken skin, eggs, butter margarine, pastries and meat. Be it pork or beef they have a lot of cholesterol continue to monitor (2) Irritable bowel syndrome: Code(s): K58.9 - Irritable bowel syndrome, unspecified Category: Medical Qualifiers: Irritable bowel syndrome type: with diarrhea Qualified Code(s): K58.0 - Irritable bowel syndrome with diarrhea Plan: Continue with present medications (3) GERD (gastroesophageal reflux disease): Code(s): K21.9 - Gastro-esophageal reflux disease without esophagitis Category: Medical Qualifiers: Esophagitis presence: without esophagitis Qualified Code(s): K21.9 - Gastro-esophageal reflux disease without esophagitis Plan: Avoid the foods that causes that usually spicy foods, tomato products, juices, coffee, soda and foods that your sensitive to. After eating do not lie down, allow 3-4 hours before in lie down. And keep the head of bed above 30 degrees to avoid the acid from going up. (4) Impaired glucose tolerance: Code(s): R73.02 - Impaired glucose tolerance (oral) Category: Medical Plan: Decrease the amount of carbohydrate intake, pasta, bread, rice and potatoes are all sugar and that is aside from all the sweet stuff, remember that fruits are good but they are Sweet also. (5) Overweight (BMI 25.0-29.9): Code(s): E66.3 - Overweight Category: Medical Plan: Diet and exercise (6) Generalized anxiety disorder with panic attacks: Comment: counselling [facility] counselling Code(s): F41.1 - Generalized anxiety disorder; F41.0 - Panic disorder [episodic paroxysmal anxiety] Category: Medical Plan: Continue with counseling and therapy Orders: Orders Influenza [id number] Immunization Today Z23 - Encounter for immunization Medications: New Fluarix Triv [id number] (PF) (flu vacc [id number] 6mos up(PF)) 0.5 mL IM ONCE 0.5 mL 0RF NS Z23 - Encounter for immunization
== END 2024-02-24 17:46 | disposition home or self-care (01) ==
PROVIDERS: PCP Internal Medicine; Visit Provider Internal Medicine
DX: E78.00 Pure hypercholesterolemia, unspecified (principal); K58.0 Irritable bowel syndrome with diarrhea; K21.9 Gastro-esophageal reflux disease without esophagitis; R73.02 Impaired glucose tolerance (oral); E66.3 Overweight; F41.1 Generalized anxiety disorder; F41.0 Panic disorder [episodic paroxysmal anxiety]; Z23 Encounter for immunization

== ENCOUNTER → 2024-02-24 16:56 | Outpatient (BNVA) | payer OTHER, SELFPAY | PROVIDERS: PCP Internal Medicine; Visit Provider Internal Medicine | DX: E78.00 Pure hypercholesterolemia, unspecified (principal); K58.0 Irritable bowel syndrome with diarrhea; K21.9 Gastro-esophageal reflux disease without esophagitis; R73.02 Impaired glucose tolerance (oral); E66.3 Overweight; Z68.27 Body mass index [BMI] 27.0-27.9, adult; F41.1 Generalized anxiety disorder; F41.0 Panic disorder [episodic paroxysmal anxiety]; Z23 Encounter for immunization | CPT/HCPCS: 90471; 90656; 96127; 99212 ==

== ENCOUNTER 2024-04-20 16:05 | Outpatient (AMB) | payer OTHER, SELFPAY ==
[2024-04-20 16:08] VITALS: BP 118/74; PULSE 61; O2SAT 95; BMI 27.6
--- NOTE | 2024-04-20 16:08 | A.OFFPC_ITS ---
Vital Signs 3 04/20/24 16:08 Height 5 ft 9 in Weight 187 lb BMI 27.6 BP 118/74 Blood Pressure Location Lt brachial Position Sitting Pulse 61 Pulse Source Pulse Oximeter Pulse Oximetry (%) 95 Oxygen Delivery Method Room Air Intake Visit Reasons: 3 month 30 minute Tour Coordinator Required: No Accompanied by: Self / Same As Patient Allergies lactose [LACTOSE] Adverse Reaction (Severe, Verified 04/20/24 16:09) TRIGGERS IBS Tobacco use date assessed: 04/20/24 Dental Screening Dental Screen Date: 04/20/24 Did you have a dental visit in the last 12 months?: Yes Did you have a dental problem in the last 6 months where you did not have access to dental care?: No Was dental information given to patient?: Patient has dentist HPI 3 month 30 minute 2 HPI0 Details The patient is a 58-year-old female presenting with multiple complaints primarily an unresolved eye issue alongside general health maintenance concerns. She reports an ongoing condition characterized by recurrent whiteish discharge from the eye, noted to have been occurring intermittently for approximately two to three months. This discharge appears every few days, and while she initially attempts to remove it, she recently left it to persist in order to demonstrate the issue. There is no current established relationship with an rail tractor operator; previous eye assisted living care manager have since relocated or become less accessible. In terms of her general health, she manages hypercholesterolemia, fatty liver disease, impaired glucose tolerance, and irritable bowel syndrome, all conditions requiring ongoing monitoring and intervention. She denies any issues with frequent urination at night or incomplete bladder emptying, which could influence her management plan. From a preventive care standpoint, the patient partakes in routine exercise at home, incorporating weight lifting and leg lifts, and uses a sauna. She reports adhering to a vaccination schedule, having recently received the shingles, flu, and COVID-19 vaccines. Additionally, she mentions preparing for upcoming blood work to assess her cholesterol and thyroid levels. The patient also takes measures to maintain her health by drinking homemade lemon water daily. There is concern regarding a possible vitamin deficiency indicated by her statement my vitamin is down, although this has not been further specified. [facility] Medical History (Updated 04/20/24 @ 17:35 by Danii Caldera MD) Screening for prostate cancer Obesity (BMI 30-39.9) Overweight (BMI 25.0-29.9) Fatty liver Thrombocytopenia Vitamin D deficiency GERD (gastroesophageal reflux disease) Irritable bowel syndrome Erectile dysfunction Hypercholesterolemia Surgical History History of colonoscopy History of surgery Family History Father Lung cancer Myocardial infarct Mother Hypertension Diabetes Brother Bone cancer Social History Housing: Apartment Alcohol intake: current Alcohol intake frequency: a few times a month Comment: 3x a week 1 drink Tobacco use type: Cigarette Years Smoked: quit 1995 2.5 pack- , occ marijuana vape e-Cigarette/Vaping Use: Never Used Second Hand Smoke Exposure: Yes service: No Current occupational status: unemployed Cognitive needs: No Hearing needs: No Vision needs: Yes Questionnaire PHQ-9 Over the last 2 weeks, how often have you been bothered by any of the following problems? 1. Little interest or pleasure in doing things: not at all 2. Feeling down, depressed, or hopeless: several days 3. Trouble falling or staying asleep, or sleeping too much: not at all 4. Feeling tired or having little energy: not at all 5. Poor appetite or overeating: not at all 6. Feeling bad about yourself - or that you are a failure or have let yourself or your family down: several days 7. Trouble concentrating on things, such as reading the newspaper or watching television: not at all 8. Moving or speaking so slowly that other people could have noticed. Or the opposite - being so fidgety or restless that you have been moving around a lot more than usual: not at all 9. Thoughts that you would be better off or of hurting yourself in some way: not at all Total score: 2 Depression Screening Interpretation: Positive Depression Screening Done: Yes 53332 - PHQ-9 Billing: Yes Source: Developed by Drs. Jimenez Pelayo, Rhoda Hawley, Lennox Sin and colleagues, with an educational alaina from [employer]. Thrive Questionnaire Date Thrive assessed: 04/20/24 I am a: Patient What is your living situation today?: I have a steady place to live Within the past 12 months, did the food you bought not last and you didn't have the money to get more?: Never true Within the past 12 months, did you worry whether your food would run out before you got money to buy more?: Never true Do you have trouble paying for medicines?: No Do you have trouble getting transportation to medical appointments?: No Do you have trouble paying your heating and electricity bill?: No Do you have trouble taking care of your child, family member or friend?: No Do you have trouble with day-to-day activities such as bathing, preparing meals, shopping, managing finances, etc.?: No Are you currently unemployed and looking for a job?: No Are you interested in more education?: No Please select the resources that you would like help with: None Currently or been in a relationship where the following occur: No concerns reported THRIVE Score: 0 AUDIT C Alcohol Use Questionnaire (AUDIT-C) 1. How often do you have a drink containing alcohol?: Monthly or less 2. How many drinks containing alcohol do you have on a typical day when you are drinking?: 1 or 2 3. How often do you have six or more drinks on one occasion?: Never Total Score: 1 EZIO-7 AMB Questionnaire EZIO-7 Date EZIO - 7 assessed: 04/20/24 Feeling nervous, anxious, or on edge: 0 = Not at all Not being able to stop or control worryin = Not at all Worrying too much about different things: 0 = Not at all Trouble relaxin = Not at all Being so restless that it is hard to sit still: 0 = Not at all Becoming easily annoyed or irritable: 0 = Not at all Feeling afraid as if something awful might happen: 0 = Not at all Total EZIO-7 score (0-4 normal; 5-9 mild; 10-14 moderate; 15-21 severe): 0 Source: Developed by Drs. Jimenez Pelayo, Rhoda Hawley, Lennox Sin and colleagues, with an educational alaina from [employer]. Physical exam (Primary Care) Vital Signs: Last Vital Signs Pulse 61 04/20/24 16:08 BP 118/74 04/20/24 16:08 Pulse Ox 95 04/20/24 16:08 Oxygen Delivery Method Room Air 04/20/24 16:08 BMI result Body Mass Index 27.6 Tobacco/Smoking Status: Tobacco use Status Tobacco use date assessed 04/20/24 04/20/24 16:11 Tobacco use type Cigarette 04/20/24 16:11 e-Cigarette/Vaping Use Never Used 04/20/24 16:11 PHQ-9: PHQ-9 Score PHQ-9: Total score 2 04/20/24 19:46 Depression Screening Interpretation: Positive Thrive Assessment: Date of Thrive Assessment Date Thrive assessed 04/20/24 04/20/24 16:11 Currently or been in a relationship where the following occur: No concerns reported Const General: alert; No acute distress [facility] Face images: 2 1. whitish scaly rash 2 mm on the lateral angle of the eyelid Eyes Conjunctivae: conjunctivae normal Resp Auscultation: clear to auscultation bilaterally Cardio Rate: regular rate Rhythm: regular rhythm GI Inspection: Yes normal to inspection Extrem General: Yes normal to inspection and No edema Coding Level of Care Code Est Pt Level 4 (48898) Diagnoses Rosacea L71.9 Irritable bowel syndrome with diarrhea K58.0 Irritable bowel syndrome type: with diarrhea Hypercholesterolemia E78.00 Eczematous dermatitis of eyelid of left eye, unspecified eyelid H01.136 Eyelid: unspecified eyelid Laterality: left Additional Codes PHQ-9 - 72779 - PHQ-9 Billing: Yes ([id number]) Assessment & Plan Assessment & Plan (1) Rosacea: Code(s): L71.9 - Rosacea, unspecified Category: Medical Plan: [facility] insurance has advised noncoverage of the 1% and would cover for the 0.75%. This is changed (2) Irritable bowel syndrome: Code(s): K58.9 - Irritable bowel syndrome, unspecified Category: Medical Qualifiers: Irritable bowel syndrome type: with diarrhea Qualified Code(s): K58.0 - Irritable bowel syndrome with diarrhea Plan: Patient would like to try cholestyramine to help with the irritable bowel syndrome diarrhea predominant. (3) Hypercholesterolemia: Code(s): E78.00 - Pure hypercholesterolemia, unspecified Category: Medical Plan: Avoid fried foods, chicken skin, eggs, butter margarine, pastries and meat. Be it pork or beef they have a lot of cholesterol LDL goal of less than 130 and triglyceride of less than 150. Patient has declined cholesterol medication. With the irritable bowel syndrome Prevalite this may help. (4) Eyelid dermatitis, eczematous: Code(s): H01.139 - Eczematous dermatitis of unspecified eye, unspecified eyelid Category: Medical Qualifiers: Eyelid: unspecified eyelid Laterality: left Qualified Code(s): H01.136 - Eczematous dermatitis of left eye, unspecified eyelid Plan: Patient is referred to Ophthalmology 58 Plan - For the unresolved eye discharge: Recommend referral to an rail tractor operator for further evaluation and management. Consider differential diagnoses such as chronic conjunctivitis or blocked tear duct, though further ophthalmic examination is necessary. - For hypercholesterolemia: Continuation of lipid level monitoring, with attention to diet and physical activity as current lifestyle changes. Evaluate the need for statins or other lipid-lowering agents post blood work evaluation. - Addressing impaired glucose tolerance: Emphasize lifestyle modifications such as diet and exercise. Follow up with fasting glucose levels and consider metformin if there is worsening of glucose parameters. - For fatty liver: Advise continuation of a healthy diet and weight management, with regular monitoring of liver function tests. - Manage irritable bowel syndrome: Reinforce current dietary strategies and consider further pharmacotherapy if symptoms persist. - Addressing anxiety disorder: Evaluate current mental health status and consider adjusting anxiety management as needed, potentially involving pharmacotherapy or counseling. - Evaluate possible vitamin deficiency: Consider obtaining vitamin levels, especially and D, to determine any deficiencies and appropriate supplementation as needed. - Preventive care and wellness: Maintain vaccination schedule as per guidelines. Encourage continued physical activity, healthy diet including regular lemon water consumption, and follow up with scheduled blood work for comprehensive health screening. - Discuss fasting requirements for upcoming blood work and ensure patient is prepared for lipid and thyroid profiling. Orders: Orders 2 Complete Blood Count Auto Diff Today E78.00 - Pure hypercholesterolemia, unspecified Comprehensive Met. Panel Today E78.00 - Pure hypercholesterolemia, unspecified Free T4 (Free Thyroxine) Today E78.00 - Pure hypercholesterolemia, unspecified Vitamin B12 and Folate Today E78.00 - Pure hypercholesterolemia, unspecified Thyroid Stimulating Hormone Today E78.00 - Pure hypercholesterolemia, unspecified Lipid Panel Today E78.00 - Pure hypercholesterolemia, unspecified Prostate Specific Antigen Scr Today E78.00 - Pure hypercholesterolemia, unspecified Hemoglobin A1c Today R73.02 - Impaired glucose tolerance (oral) Referrals 2 Ophthalmology Referral H01.139 - Eczematous dermatitis of unspecified eye, unspecified eyelid Medications: New 2 metronidazole 0.75% 1 appl topical BEDTIME 45 grams 2RF L71.9 - Rosacea, unspecified cholestyramine-aspartame 4 gram (Prevalite) administer w/meal; avoid other meds within 1hr before or 4-6hr after dose 4 grams PO DAILY 60 ea 2RF K58.0 - Irritable bowel syndrome with diarrhea Refilled 2 propranolol 20 mg PO .QD 90 tabs 2RF 90 days F41.9 - Anxiety disorder, unspecified clonazepam 0.5 mg PO BEDTIME PRN 30 tabs 2RF anxi 30 days F41.9 - Anxiety disorder, unspecified
== END 2024-04-20 17:34 | disposition home or self-care (01) ==
PROVIDERS: PCP Internal Medicine; Visit Provider Internal Medicine
DX: L71.9 Rosacea, unspecified (principal); K58.0 Irritable bowel syndrome with diarrhea; E78.00 Pure hypercholesterolemia, unspecified; H01.136 Eczematous dermatitis of left eye, unspecified eyelid

== ENCOUNTER → 2024-04-20 16:05 | Outpatient (BNVA) | payer OTHER, SELFPAY | PROVIDERS: PCP Internal Medicine; Visit Provider Internal Medicine | DX: L71.9 Rosacea, unspecified (principal); K58.0 Irritable bowel syndrome with diarrhea; E78.00 Pure hypercholesterolemia, unspecified; H01.136 Eczematous dermatitis of left eye, unspecified eyelid | CPT/HCPCS: 96127; 99212 ==

== ENCOUNTER 2024-04-22 14:12 | Outpatient (REF) | payer OTHER, SELFPAY ==
[2024-04-22 14:25] LABS: MANUAL DIFF FLAG NO
[2024-04-22 14:52] LABS: Basophils Percent Auto 0.5 % (0-2); Eosinophils Absolute Auto 0.1 X10*3/uL (0.0-0.4); Eosinophils Percent Auto 1.1 % (0-4); Hematocrit 45.5 % (42.0-52.0); Hemoglobin 16.1 g/dl (14.0-18.0); Imm Gran Abs Auto 0.01 X10*3/uL (0.00-0.03); Imm Gran Pct Auto 0.2 % (0.0-0.4); Lymphocytes Absolute Auto 2.1 X10*3/uL (1.2-4.9); Lymphocytes Percent Auto 33.7 % (20-40); Mean Corpuscular HGB Conc 35.4 g/dl (31.0-36.0); Mean Corpuscular Hemoglobin 31.3 pg (27.0-33.0); Mean Corpuscular Volume 88.3 fL (80.0-98.0); Monocytes Absolute Auto 0.6 X10*3/uL (0.1-1.2); Monocytes Percent Auto 8.8 % (2-11); Neutrophils Absolute Auto 3.5 x10*3/uL (2.0-8.3); Neutrophils Percent Auto 55.7 % (45-73); Platelet Count 171 X10*3/uL (160-400); Red Blood Count 5.15 X10*6/uL (4.60-5.80); Red Cell Distribution Width 11.7 % (11.0-16.0); White Blood Count 6.2 X10*3/uL (4.8-10.8)
[2024-04-22 14:59] LABS: Estimated Average Glucose 103 mg/dL; Hemoglobin A1C 134.0743 umol/L; Hemoglobin A1c % 5.2 % (<6.0); Total Hemoglobin (HGBA1C) 4056.6443 umol/L
[2024-04-22 15:20] LABS: Alanine Aminotransferase 23 U/L (0-40); Albumin Level 4.5 g/dL (3.5-5.0); Alkaline Phosphatase 57 U/L (39-117); Anion Gap 9 (12-20); Aspartate Amino Transferase 27 U/L (5-37); Blood Urea Nitrogen 16 mg/dL (9-16); Calcium 8.9 mg/dL (8.4-10.2); Carbon Dioxide 29 mmol/L (22-29); Chloride 106 mmol/L (96-108); Cholesterol 202 mg/dL (<200); Estimated Glomerular Filt Rate > 60; Glucose Random 111 mg/dL (60-115); HDL Cholesterol 42 mg/dL (>40); LDL Cholesterol Calculated 129 mg/dL (<100); Potassium 4.6 mmol/L (3.3-5.1); Sodium 139 mmol/L (135-145); Triglycerides 157 mg/dL (<150)
[2024-04-22 15:34] LABS: Free T4 (Free Thyroxine) 1.16 ng/dL (0.71-1.85); Thyroid Stimulating Hormone 0.89 uIU/mL (0.32-4.0)
[2024-04-22 15:48] LABS: Folate 14.2 ng/mL (> or = 4.0); Prostate Specific Antigen Scr 0.18 ng/mL (<0.05-4.0); Vitamin B12 461 pg/mL (200-900)
== END 2024-04-22 14:13 | disposition home or self-care (01) ==
LOC: HO.LAB 14:12
PROVIDERS: PCP Internal Medicine; Visit Provider Internal Medicine
DX: E78.00 Pure hypercholesterolemia, unspecified (principal); R73.02 Impaired glucose tolerance (oral); Z12.5 Encounter for screening for malignant neoplasm of prostate
CPT/HCPCS: 36415; 80053; 80061; 82607; 82746; 83036; 84153; 84439; 84443; 85025

== ENCOUNTER 2024-07-06 16:49 | Outpatient (AMB) | payer OTHER, SELFPAY ==
--- NOTE | 2024-07-06 16:56 | A.OFFPC_ITS ---
Vital Signs 07/06/24 17:02 Height 5 ft 9 in Weight 191 lb 2 oz BMI 28.2 BP 132/88 Blood Pressure Location Lt brachial Position Sitting Pulse 60 Pulse Source Pulse Oximeter Temp 97.1 F Temp Source Temporal Artery Scan Pulse Oximetry (%) 95 Oxygen Delivery Method Room Air Intake Visit Reasons: jose sahu Supply Chain Manager Required: No Accompanied by: Self / Same As Patient Allergies lactose [LACTOSE] Adverse Reaction (Severe, Verified 07/06/24 16:57) TRIGGERS IBS Tobacco use date assessed: 07/06/24 Dental Screening Dental Screen Date: 07/06/24 Did you have a dental visit in the last 12 months?: Yes Did you have a dental problem in the last 6 months where you did not have access to dental care?: No Was dental information given to patient?: Patient has dentist [facility] Medical History (Updated 04/20/24 @ 17:35 by Danii Caldera MD) Screening for prostate cancer Obesity (BMI 30-39.9) Overweight (BMI 25.0-29.9) Fatty liver Thrombocytopenia Vitamin D deficiency GERD (gastroesophageal reflux disease) Irritable bowel syndrome Erectile dysfunction Hypercholesterolemia Surgical History History of colonoscopy History of surgery Family History Father Lung cancer Myocardial infarct Mother Hypertension Diabetes Brother Bone cancer Social History Housing: Apartment Alcohol intake: current Alcohol intake frequency: a few times a month Comment: 3x a week 1 drink Tobacco use type: Cigarette Years Smoked: quit 1995 2.5 pack- , occ marijuana vape e-Cigarette/Vaping Use: Never Used Second Hand Smoke Exposure: Yes service: No Current occupational status: unemployed Cognitive needs: No Hearing needs: No Vision needs: Yes Questionnaire PHQ-9 Over the last 2 weeks, how often have you been bothered by any of the following problems? 1. Little interest or pleasure in doing things: not at all 2. Feeling down, depressed, or hopeless: not at all 3. Trouble falling or staying asleep, or sleeping too much: not at all 4. Feeling tired or having little energy: not at all 5. Poor appetite or overeating: not at all 6. Feeling bad about yourself - or that you are a failure or have let yourself or your family down: not at all 7. Trouble concentrating on things, such as reading the newspaper or watching television: not at all 8. Moving or speaking so slowly that other people could have noticed. Or the opposite - being so fidgety or restless that you have been moving around a lot more than usual: not at all 9. Thoughts that you would be better off or of hurting yourself in some way: not at all Total score: 0 Depression Screening Interpretation: Negative Depression Screening Done: Yes 63498 - PHQ-9 Billing: Yes Source: Developed by Drs. Jimenez Pelayo, Rhoda Hawley, Lennox Sin and colleagues, with an educational alaina from [employer]. Thrive Questionnaire Date Thrive assessed: 07/06/24 I am a: Patient What is your living situation today?: I have a steady place to live Within the past 12 months, did the food you bought not last and you didn't have the money to get more?: Never true Within the past 12 months, did you worry whether your food would run out before you got money to buy more?: Never true Do you have trouble paying for medicines?: No Do you have trouble getting transportation to medical appointments?: No Do you have trouble paying your heating and electricity bill?: No Do you have trouble taking care of your child, family member or friend?: No Do you have trouble with day-to-day activities such as bathing, preparing meals, shopping, managing finances, etc.?: No Are you currently unemployed and looking for a job?: No Are you interested in more education?: No Please select the resources that you would like help with: None Currently or been in a relationship where the following occur: No concerns reported THRIVE Score: 0 AUDIT C Alcohol Use Questionnaire (AUDIT-C) 1. How often do you have a drink containing alcohol?: Monthly or less 2. How many drinks containing alcohol do you have on a typical day when you are drinking?: 1 or 2 3. How often do you have six or more drinks on one occasion?: Never Total Score: 1 EZIO-7 AMB Questionnaire EZIO-7 Date EZIO - 7 assessed: 07/06/24 Feeling nervous, anxious, or on edge: 0 = Not at all Not being able to stop or control worryin = Not at all Worrying too much about different things: 0 = Not at all Trouble relaxin = Not at all Being so restless that it is hard to sit still: 0 = Not at all Becoming easily annoyed or irritable: 0 = Not at all Feeling afraid as if something awful might happen: 0 = Not at all Total EZIO-7 score (0-4 normal; 5-9 mild; 10-14 moderate; 15-21 severe): 0 Source: Developed by Drs. Jimenez Pelayo, Rhoda Hawley, Lennox Sin and colleagues, with an educational alaina from [employer]. EZIO-7 Assessment Billing EZIO-7 Assessment Tool: EZIO-7 Assessment 85125 Physical exam (Primary Care) Vital Signs: Last Vital Signs Temp 97.1 F 07/06/24 17:02 Pulse 60 07/06/24 17:02 BP 132/88 07/06/24 17:02 Pulse Ox 95 07/06/24 17:02 Oxygen Delivery Method Room Air 07/06/24 17:02 BMI result Body Mass Index 28.2 Tobacco/Smoking Status: Tobacco use Status Tobacco use date assessed 07/06/24 07/06/24 16:57 Tobacco use type Cigarette 07/06/24 16:57 e-Cigarette/Vaping Use Never Used 07/06/24 16:57 PHQ-9: PHQ-9 Score PHQ-9: Total score 0 07/06/24 17:17 Depression Screening Interpretation: Negative Thrive Assessment: Date of Thrive Assessment Date Thrive assessed 07/06/24 07/06/24 17:09 Currently or been in a relationship where the following occur: No concerns reported Const General: alert; No acute distress Eyes Conjunctivae: conjunctivae normal Resp Auscultation: clear to auscultation bilaterally Cardio Rate: regular rate Rhythm: regular rhythm GI Inspection: Yes normal to inspection Extrem General: Yes normal to inspection and No edema Coding Level of Care Code Est Pt Level 4 (43772) Diagnoses Overweight (BMI 25.0-29.9) E66.3 Impaired glucose tolerance R73.02 Fatty liver K76.0 Gastroesophageal reflux disease without esophagitis K21.9 Esophagitis presence: without esophagitis Hypercholesterolemia E78.00 Irritable bowel syndrome with diarrhea K58.0 Irritable bowel syndrome type: with diarrhea Generalized anxiety disorder with panic attacks F41.1; F41.0 Additional Codes EZIO-7 Assessment Billing - EZIO-7 Assessment Tool: EZIO-7 Assessment 38980 ([id number]) PHQ-9 - 13287 - PHQ-9 Billing: Yes ([id number]) Assessment & Plan Assessment & Plan (1) Overweight (BMI 25.0-29.9): Code(s): E66.3 - Overweight Category: Medical Plan: Diet and exercise (2) Impaired glucose tolerance: Code(s): R73.02 - Impaired glucose tolerance (oral) Category: Medical Plan: Decrease the amount of carbohydrate intake, pasta, bread, rice and potatoes are all sugar and that is aside from all the sweet stuff, remember that fruits are good but they are Sweet also. (3) Fatty liver: Code(s): K76.0 - Fatty (change of) liver, not elsewhere classified Category: Medical Plan: Low-fat diet and exercise (4) GERD (gastroesophageal reflux disease): Code(s): K21.9 - Gastro-esophageal reflux disease without esophagitis Category: Medical Qualifiers: Esophagitis presence: without esophagitis Qualified Code(s): K21.9 - Gastro-esophageal reflux disease without esophagitis Plan: Avoid the foods that causes that usually spicy foods, tomato products, juices, coffee, soda and foods that your sensitive to. After eating do not lie down, allow 3-4 hours before in lie down. And keep the head of bed above 30 degrees to avoid the acid from going up. (5) Hypercholesterolemia: Code(s): E78.00 - Pure hypercholesterolemia, unspecified Category: Medical Plan: Avoid fried foods, chicken skin, eggs, butter margarine, pastries and meat. Be it pork or beef they have a lot of cholesterol LDL goal of less than 130 and triglyceride of less than 150. (6) Irritable bowel syndrome: Code(s): K58.9 - Irritable bowel syndrome, unspecified Category: Medical Qualifiers: Irritable bowel syndrome type: with diarrhea Qualified Code(s): K58.0 - Irritable bowel syndrome with diarrhea Plan: Continue with present medication (7) Generalized anxiety disorder with panic attacks: Comment: counselling [facility] counselling Code(s): F41.1 - Generalized anxiety disorder; F41.0 - Panic disorder [episodic paroxysmal anxiety] Category: Medical Plan: Continue with present medication and counseling Plan History of Present Illness The patient is a 58-year-old male presenting for follow-up management of chronic conditions. He has a history of irritable bowel syndrome, hypercholesterolemia, GERD, and fatty liver, with a stable condition over recent visits. A colonoscopy conducted in September 2018 indicated no notable gastrointestinal issues apart from IBS-related symptoms. The patient has been advised to monitor cataracts annually. Regular eyelid hygiene with warm compresses and artificial tears were recommended for managing periodic discomfort. He reports satisfactory management of generalized anxiety disorder. Blood work from April 2018 displayed normal levels except for elevated fasting blood glucose. Lipid profile recent evaluations showed LDL at 129 mg/dL. Maintaining adequate physical activity has been difficult due to an upper limb injury, which has affected his HDL levels. Health Maintenance - Monitoring cholesterol, targeting LDL <130 mg/dL, triglycerides <150 mg/dL. - Discussion on diet modification and exercise for cholesterol and general health improvement. - Patient received influenza vaccination, confirmed shingles vaccination completion. - Discussed appropriate use of masks during flu/COVID season for protection. Social History - The patient experienced difficulty in maintaining exercises due to arm injury. - Engages in regular sauna use and expressed awareness of cataract threats. - Dietary habits include low-fat diet considerations. - Reports use of warm compresses and artificial tears for eye hygiene. Review of Systems - General: Reports arm pain limiting physical activity. - Ophthalmologic: Reports eyelid discomfort; cataracts diagnosed. - Endocrine: Reports elevated fasting blood glucose; otherwise tolerable. - Musculoskeletal: Reports arm soreness due to recent heavy physical activity. Physical Exam Results - Labs: Normal blood count, organ function, except for elevated fasting blood glucose and HDL decline. - Tests and Diagnostics: Cholesterol LDL 129 mg/dL, last colonoscopy in September 2018. Plan The patient will adhere to dietary modifications and exercise protocols to manage weight and cholesterol, using warm compresses and artificial tears for eyelid discomfort. Continual blood glucose monitoring, considering dietary and exercise impacts on A1c levels, is advised. Protective masks should be used in crowded areas during flu and COVID seasons, with ongoing medication and follow- up compliance emphasized. Patient was informed and verbally consented to the use of an ambient scribe for clinic note documentation during this visit. Discussion Notes I discussed the importance of maintaining a low-fat diet and regular exercise to manage both weight and cholesterol. I emphasized ongoing eye hygiene practices and addressed the need for annual cataract monitoring. We reviewed the implications of elevated fasting blood glucose and strategies to maintain stable A1c results. Protective measures during flu and COVID season were recommended. The patient was advised on the benefits and continued need for medication adherence and regular health evaluations. Patient Instructions - Follow a low-fat diet and incorporate regular exercise. - Use warm compresses and artificial tears for eye relief. - Continue regular health check-ups and medication regimen. - Wear masks in crowded settings during flu and COVID season. - Monitor glucose levels and maintain regular blood work. - Practice eyelid hygiene and attend annual cataract evaluation.
[2024-07-06 17:02] VITALS: BP 132/88; PULSE 60; TEMP 36.2; O2SAT 95; BMI 28.2
== END 2024-07-06 17:28 | disposition home or self-care (01) ==
PROVIDERS: PCP Internal Medicine; Visit Provider Internal Medicine
DX: E66.3 Overweight (principal); R73.02 Impaired glucose tolerance (oral); K76.0 Fatty (change of) liver, not elsewhere classified; K21.9 Gastro-esophageal reflux disease without esophagitis; E78.00 Pure hypercholesterolemia, unspecified; K58.0 Irritable bowel syndrome with diarrhea; F41.1 Generalized anxiety disorder; F41.0 Panic disorder [episodic paroxysmal anxiety]

== ENCOUNTER → 2024-07-06 16:49 | Outpatient (BNVA) | payer OTHER, SELFPAY | PROVIDERS: PCP Internal Medicine; Visit Provider Internal Medicine | DX: E66.3 Overweight (principal); R73.02 Impaired glucose tolerance (oral); K76.0 Fatty (change of) liver, not elsewhere classified; K21.9 Gastro-esophageal reflux disease without esophagitis; E78.00 Pure hypercholesterolemia, unspecified; K58.0 Irritable bowel syndrome with diarrhea; F41.1 Generalized anxiety disorder; F41.0 Panic disorder [episodic paroxysmal anxiety] | CPT/HCPCS: 96127; 99212 ==

== ENCOUNTER 2024-10-12 16:53 | Outpatient (AMB) | payer OTHER, SELFPAY ==
[2024-10-12 16:55] VITALS: BP 124/82; PULSE 61; O2SAT 94; BMI 27.5
--- NOTE | 2024-10-12 16:55 | A.OFFPC_ITS ---
Vital Signs 10/12/24 16:55 Height 5 ft 9 in Weight 186 lb 4 oz BMI 27.5 BP 124/82 Blood Pressure Location Lt brachial Position Sitting Pulse 61 Pulse Source Pulse Oximeter Pulse Oximetry (%) 94 Oxygen Delivery Method Room Air Intake Visit Reasons: IBS, EZIO Playground Attendant Required: No Accompanied by: Self / Same As Patient Allergies lactose [LACTOSE] Adverse Reaction (Severe, Verified 10/12/24 16:55) TRIGGERS IBS Tobacco use date assessed: 10/12/24 Dental Screening Dental Screen Date: 10/12/24 Did you have a dental visit in the last 12 months?: Yes Did you have a dental problem in the last 6 months where you did not have access to dental care?: No Was dental information given to patient?: Patient has dentist [facility] Medical History (Updated 04/20/24 @ 17:35 by Danii Caldera MD) Screening for prostate cancer Obesity (BMI 30-39.9) Overweight (BMI 25.0-29.9) Fatty liver Thrombocytopenia Vitamin D deficiency GERD (gastroesophageal reflux disease) Irritable bowel syndrome Erectile dysfunction Hypercholesterolemia Surgical History History of colonoscopy History of surgery Family History Father Lung cancer Myocardial infarct Mother Hypertension Diabetes Brother Bone cancer Social History Housing: Apartment Alcohol intake: current Alcohol intake frequency: a few times a month Comment: 3x a week 1 drink Tobacco use type: Cigarette Years Smoked: quit 1995 2.5 pack- , occ marijuana vape e-Cigarette/Vaping Use: Never Used Second Hand Smoke Exposure: Yes service: No Current occupational status: unemployed Cognitive needs: No Hearing needs: No Vision needs: Yes Questionnaire PHQ-9 Over the last 2 weeks, how often have you been bothered by any of the following problems? 1. Little interest or pleasure in doing things: several days 2. Feeling down, depressed, or hopeless: not at all 3. Trouble falling or staying asleep, or sleeping too much: several days 4. Feeling tired or having little energy: several days 5. Poor appetite or overeating: not at all 6. Feeling bad about yourself - or that you are a failure or have let yourself or your family down: several days 7. Trouble concentrating on things, such as reading the newspaper or watching television: not at all 8. Moving or speaking so slowly that other people could have noticed. Or the opposite - being so fidgety or restless that you have been moving around a lot more than usual: not at all 9. Thoughts that you would be better off or of hurting yourself in some way: not at all Total score: 4 Source: Developed by Drs. Jimenez Pelayo, Rhoda Hawley, Lennox Sin and colleagues, with an educational alaina from [employer]. Thrive Questionnaire Date Thrive assessed: 10/12/24 I am a: Patient What is your living situation today?: I have a steady place to live Within the past 12 months, did the food you bought not last and you didn't have the money to get more?: I choose not to answer this question Within the past 12 months, did you worry whether your food would run out before you got money to buy more?: I choose not to answer this question Do you have trouble paying for medicines?: Yes Do you have trouble getting transportation to medical appointments?: No Do you have trouble paying your heating and electricity bill?: No Do you have trouble taking care of your child, family member or friend?: No Do you have trouble with day-to-day activities such as bathing, preparing meals, shopping, managing finances, etc.?: No Are you currently unemployed and looking for a job?: Yes Are you interested in more education?: No Please select the resources that you would like help with: None Currently or been in a relationship where the following occur: I choose not to answer THRIVE Score: 0 AUDIT C Alcohol Use Questionnaire (AUDIT-C) 1. How often do you have a drink containing alcohol?: Never 3. How often do you have six or more drinks on one occasion?: Never Total Score: 0 EZIO-7 AMB Questionnaire EZIO-7 Date EZIO - 7 assessed: 10/12/24 Feeling nervous, anxious, or on edge: 0 = Not at all Not being able to stop or control worryin = Not at all Worrying too much about different things: 0 = Not at all Trouble relaxin = Not at all Being so restless that it is hard to sit still: 0 = Not at all Becoming easily annoyed or irritable: 0 = Not at all Feeling afraid as if something awful might happen: 0 = Not at all Total EZIO-7 score (0-4 normal; 5-9 mild; 10-14 moderate; 15-21 severe): 0 Source: Developed by Drs. Jimenez Pelayo, Rhoda Hawley, Lennox Sin and colleagues, with an educational alaina from [employer]. Physical exam (Primary Care) Vital Signs: Last Vital Signs Pulse 61 10/12/24 16:55 BP 124/82 10/12/24 16:55 Pulse Ox 94 10/12/24 16:55 Oxygen Delivery Method Room Air 10/12/24 16:55 BMI result Body Mass Index 27.5 Tobacco/Smoking Status: Tobacco use Status Tobacco use date assessed 10/12/24 10/12/24 16:58 Tobacco use type Cigarette 10/12/24 16:58 e-Cigarette/Vaping Use Never Used 10/12/24 16:58 PHQ-9: PHQ-9 Score PHQ-9: Total score 4 10/12/24 17:18 Thrive Assessment: Date of Thrive Assessment Date Thrive assessed 10/12/24 10/12/24 16:58 Currently or been in a relationship where the following occur: I choose not to answer Const General: alert; No acute distress Eyes Conjunctivae: conjunctivae normal Resp Auscultation: clear to auscultation bilaterally Cardio Rate: regular rate Rhythm: regular rhythm GI Inspection: Yes normal to inspection Extrem General: Yes normal to inspection and No edema Coding Level of Care Code Est Pt Level 4 (74492) Complex EM visit Add On G2211 Diagnoses Hypercholesterolemia E78.00 Irritable bowel syndrome with diarrhea K58.0 Irritable bowel syndrome type: with diarrhea Gastroesophageal reflux disease without esophagitis K21.9 Esophagitis presence: without esophagitis Fatty liver K76.0 Impaired glucose tolerance R73.02 Overweight (BMI 25.0-29.9) E66.3 Generalized anxiety disorder with panic attacks F41.1; F41.0 Assessment & Plan Assessment & Plan (1) Hypercholesterolemia: Code(s): E78.00 - Pure hypercholesterolemia, unspecified Category: Medical Plan: Avoid fried foods, chicken skin, eggs, butter margarine, pastries and meat. Be it pork or beef they have a lot of cholesterol LDL goal of less than 130 and triglyceride of less than 150 on diet control (2) Irritable bowel syndrome: Code(s): K58.9 - Irritable bowel syndrome, unspecified Category: Medical Qualifiers: Irritable bowel syndrome type: with diarrhea Qualified Code(s): K58.0 - Irritable bowel syndrome with diarrhea Plan: Continue with present medication as needed. Advised to eat healthy (3) GERD (gastroesophageal reflux disease): Code(s): K21.9 - Gastro-esophageal reflux disease without esophagitis Category: Medical Qualifiers: Esophagitis presence: without esophagitis Qualified Code(s): K21.9 - Gastro-esophageal reflux disease without esophagitis Plan: Avoid the foods that causes that usually spicy foods, tomato products, juices, coffee, soda and foods that your sensitive to. After eating do not lie down, allow 3-4 hours before in lie down. And keep the head of bed above 30 degrees to avoid the acid from going up. (4) Fatty liver: Code(s): K76.0 - Fatty (change of) liver, not elsewhere classified Category: Medical Plan: Discussed about low-fat diet and exercise (5) Impaired glucose tolerance: Code(s): R73.02 - Impaired glucose tolerance (oral) Category: Medical Plan: Decrease the amount of carbohydrate intake, pasta, bread, rice and potatoes are all sugar and that is aside from all the sweet stuff, remember that fruits are good but they are Sweet also. (6) Overweight (BMI 25.0-29.9): Code(s): E66.3 - Overweight Category: Medical Plan: Diet and exercise (7) Generalized anxiety disorder with panic attacks: Comment: counselling [facility] counselling Code(s): F41.1 - Generalized anxiety disorder; F41.0 - Panic disorder [episodic paroxysmal anxiety] Category: Medical Plan: Continue with counseling and therapy Plan History of Present Illness The patient is a 59-year-old male presenting for a routine follow-up regarding chronic conditions and their management. He is observed to have hypercholesterolemia with LDL levels presently at goal and slightly elevated triglycerides. His irritable bowel syndrome and gastroesophageal reflux have been influenced by dietary habits, with recent weight loss reported. His impaired glucose tolerance reflects an elevated blood sugar level, but hemoglobi n A1c remains within range. He maintains an active lifestyle and adheres to ongoing anxiety counseling, which provides him relief. He recently completed shingles vaccination and has discussed occasional issues with medication refills due to pharmacy processing errors. Health Maintenance - Completed two-dose shingles vaccination series. - Active management and counseling for anxiety disorder. - Dietary and exercise modifications for weight management and control of hypercholesterolemia. - Regular aerobic exercise routine. - Advice provided on GERD dietary management, including low-fat diet. - Periodic laboratory testing, with most recent results in April 2024. Social History - Participates in regular exercise. - Abstains from beer consumption. - Undergoing counseling for anxiety disorder. - Regular dietary modifications aimed at reducing fats due to GERD. - Completed shingles vaccination; recently received second dose. - Issues with medication refills due to pharmacy communication problems. Review of Systems - Gastrointestinal: Reports previous weight loss, GERD; denies acute abdominal pain. - Endocrine: Impaired glucose tolerance noted. - Psychological: Reports ongoing anxiety; engaged in counseling. - General: Completed shingles vaccination; sore post-vaccination temporarily. Physical Exam Results - Labs: April 2024 blood work indicating normal blood count, electrolytes, renal and liver function, PSA, B12, folic acid. - Blood Sugar: 111 mg/dL, elevated, with normal hemoglobin A1c. - Lipid Profile: Cholesterol LDL at 129 mg/dL, triglycerides at 157 mg/dL. Plan I discussed with the patient the importance of ongoing management for his hypercholesterolemia through dietary control aiming for an LDL goal of less than 130 mg/dL and triglycerides under 150 mg/dL. Impaired glucose tolerance will be monitored, encouraging adherence to exercise and dietary adjustments. GERD and IBS management involves continued low-fat dietary adjustments and consistent meal scheduling, advising against fasting due to hyperacidity risks. Recent completion of the shingles vaccination series was confirmed with counselor support continuing to aid anxiety disorder management. Current medication regimens were verified with pharmacy follow-up as needed. A routine follow-up is planned to facilitate ongoing care and adjustments where required. Patient was informed and verbally consented to the use of an ambient scribe for clinic note documentation during this visit. Discussion Notes I discussed the management of the patient's chronic health conditions, emphasizing dietary control and exercise as pivotal in managing hypercholesterolemia and impaired glucose tolerance. The negative implications of fasting with his GERD were elaborated upon, stressing scheduled meals to prevent hyperacidity. We reviewed the effects of his completed shingles vaccination and reinforced the importance of ongoing counseling for anxiety disorder management. Refills were discussed concerning pharmacy communication, and I assured the patient of continuity in care. No urgent labs or additional diagnostic tests were deemed necessary currently, with plans for regular follow- up agreed upon. Patient Instructions - Follow a low-fat diet to help manage GERD and high cholesterol. - Continue with regular exercise as part of glucose intolerance management. - Do not engage in fasting due to potential adverse effects on GERD. - Ensure completion of medication regimes and address any pharmacy issues. - Continue counseling sessions to manage anxiety. - No immediate need for additional laboratory testing; follow-up as scheduled. - Report any new or worsening symptoms promptly.
== END 2024-10-12 17:34 | disposition home or self-care (01) ==
LOC: HO.HMCH 16:54
PROVIDERS: PCP Internal Medicine; Visit Provider Internal Medicine
DX: E78.00 Pure hypercholesterolemia, unspecified (principal); K58.0 Irritable bowel syndrome with diarrhea; K21.9 Gastro-esophageal reflux disease without esophagitis; K76.0 Fatty (change of) liver, not elsewhere classified; R73.02 Impaired glucose tolerance (oral); E66.3 Overweight; F41.1 Generalized anxiety disorder; F41.0 Panic disorder [episodic paroxysmal anxiety]

== ENCOUNTER → 2024-10-12 16:53 | Outpatient (BNVA) | payer OTHER, SELFPAY | PROVIDERS: PCP Internal Medicine; Visit Provider Internal Medicine | DX: K58.0 Irritable bowel syndrome with diarrhea (principal); E78.00 Pure hypercholesterolemia, unspecified; K21.9 Gastro-esophageal reflux disease without esophagitis; K76.0 Fatty (change of) liver, not elsewhere classified; R73.02 Impaired glucose tolerance (oral); E66.3 Overweight; Z68.27 Body mass index [BMI] 27.0-27.9, adult; F41.1 Generalized anxiety disorder; F41.0 Panic disorder [episodic paroxysmal anxiety]; Z13.30 Encounter for screening examination for mental health and behavioral disorders, unspecified | CPT/HCPCS: 96127; 99212 ==

== ENCOUNTER 2025-01-18 17:24 | Outpatient (AMB) | payer OTHER, SELFPAY ==
[2025-01-18 17:26] VITALS: BP 128/82; PULSE 62; O2SAT 98; BMI 28.5
--- NOTE | 2025-01-18 17:26 | AM.OFFVISMDC ---
Intake Vital Signs 01/18/25 17:26 Height 5 ft 9 in Weight 193 lb BMI 28.5 BP 128/82 Blood Pressure Location Lt brachial Position Sitting Pulse 62 Pulse Source Pulse Oximeter Pulse Oximetry (%) 98 Oxygen Delivery Method Room Air Intake Visit Reasons: [place] medicare wellness Allergies lactose (LACTOSE) Adverse Reaction (Severe, Verified 01/18/25 17:26) TRIGGERS IBS buspirone Adverse Reaction (Intermediate, Unverified 01/18/25 18:01) eczema Medication List - Last Reconciled 01/18/25 by Danii Caldera MD cholestyramine (Prevalite) 4 grams PO BID clonazepam 0.5 mg PO BEDTIME PRN 30 days clotrimazole 1% 1 appl topical BID 4 weeks diphenoxylate-atropine 2.5-0.025 mg 1 tab PO DAILY propranolol 20 mg PO .QD 90 days HPI [place] medicare wellness HPI Details [place] of care Ophthalmology long would eye and LASIK Gastroenterology Dr. Walden [facility] Medical History (Updated 04/20/24 @ 17:35 by Danii Caldera MD) Screening for prostate cancer Obesity (BMI 30-39.9) Overweight (BMI 25.0-29.9) Fatty liver Thrombocytopenia Vitamin D deficiency GERD (gastroesophageal reflux disease) Irritable bowel syndrome Erectile dysfunction Hypercholesterolemia Surgical History History of colonoscopy History of surgery Family History Father Lung cancer Myocardial infarct Mother Hypertension Diabetes Brother Bone cancer Social History Housing: Apartment Alcohol intake: current Alcohol intake frequency: a few times a month Comment: 3x a week 1 drink Tobacco use type: Cigarette Years Smoked: quit 1995 2.5 pack- , occ marijuana vape e-Cigarette/Vaping Use: Never Used Second Hand Smoke Exposure: Yes service: No Current occupational status: unemployed Cognitive needs: No Hearing needs: No Vision needs: Yes Questionnaire Medicare Wellness Checkup What is your age?: 65-69 (18-64) What gender do you identify with?: male During the past 4 weeks, how much have you been bothered by emotional problems such as feeling anxious, depressed, irritable, sad or downhearted, and blue?: moderately During the past 4 weeks, has your physical & emotional health limited your social activities with family, friends, neighbors, or groups?: slightly During the past 4 weeks, how much bodily pain have you generally had?: no pain During the past 4 weeks, was someone available to help you if you needed & wanted help?: no, not at all During the past 4 weeks, what was the hardest physical activity you could do for at least 2 minutes?: moderate Can you get to places out of walking distance without help? (For eg., can you travel alone on buses, taxis or drive your car?): Yes Can you go shopping for groceries or clothes without someone's help?: No Can you prepare your own meals?: Yes Can you do your housework without help?: Yes Because of any health problems, do you need the help of another person with your personal care needs such as eating, bathing, dressing or getting around the house?: No Can you handle your own money without help?: Yes During the past 4 weeks, how would you rate your health in general?: fair During the past 4 weeks how have things been going for you?: good & bad parts about equal Are you having difficulties driving your car?: no Do you always fasten your seat belt when you are in a car?: yes, usually During past 4 weeks, have you been bothered by the following: never: Falling or dizzy when standing up, Problems using the telephone? and Tiredness or fatigue?, seldom: Teeth or denture problems?, sometimes: Sexual problems? and often: Trouble eating well? Have you fallen 2 or more times in the past year?: No Are you afraid of falling?: No Are you a smoker?: no During the past 4 weeks, how many drinks of wine, beer, or other alcoholic beverages did you have?: 6-9 drinks per week Do you exercise for about 20 minutes 3 or more times a week?: yes, most of the time Have you been given information to help with the following?: no: Hazards in your house that might hurt you? and no: Keeping track of your medications? How often do you have trouble taking medicines the way you have been told to take them?: I always take medicine as prescribed How confident are you that you can control & manage most of your health problems?: somewhat confident What is your race?: Other PHQ-9 Over the last 2 weeks, how often have you been bothered by any of the following problems? 1. Little interest or pleasure in doing things: more than half the days 2. Feeling down, depressed, or hopeless: several days 3. Trouble falling or staying asleep, or sleeping too much: several days 4. Feeling tired or having little energy: more than half the days 5. Poor appetite or overeating: not at all 6. Feeling bad about yourself - or that you are a failure or have let yourself or your family down: several days 7. Trouble concentrating on things, such as reading the newspaper or watching television: not at all 8. Moving or speaking so slowly that other people could have noticed. Or the opposite - being so fidgety or restless that you have been moving around a lot more than usual: not at all 9. Thoughts that you would be better off or of hurting yourself in some way: not at all Total score: 7 Depression Screening Interpretation: Positive Depression Screening Done: Yes 33083 - PHQ-9 Billing: Yes Source: Developed by Drs. Jimenez Pelayo, Rhoda Hawley, Lennox Sin and colleagues, with an educational alaina from [employer]. Review of Systems Const Denies poor appetite and Denies weakness Eyes Denies no additional complaints ENT Reports Normal hearing present, Denies dizziness, Denies nasal congestion, Denies tinnitus and Denies sore throat Card Denies chest pain, Denies syncope, Denies rapid heart rate and Denies dyspnea Resp Denies cough and Denies dyspnea GI Denies change in stool character, Reports constipation, Denies diarrhea, Denies nausea and Denies vomiting Denies dysuria and Denies urinary frequency Neuro Reports Normal hearing present, Denies confusion, Denies dizziness, Denies syncope and Denies weakness Psych Denies confusion Physical Exam Vital Signs: Last Vital Signs Pulse 62 01/18/25 17:26 BP 128/82 01/18/25 17:26 Pulse Ox 98 01/18/25 17:26 Oxygen Delivery Method Room Air 01/18/25 17:26 BMI result Body Mass Index 28.5 Const General: No confusion Orientation/consciousness: No confusion HEENT Head: Yes normocephalic Ears: external ears normal and TM's normal bilaterally Face and sinus: Yes normal facial exam Mouth: moist mucous membranes Throat: Yes tonsils normal Eyes Conjunctivae: conjunctivae normal Pupils: Equal, round and reactive pupils present and Pupil accommodation reflex normal Direct Ophthalmoscopy: normal light reflex Neck Neck: No lymphadenopathy Thyroid: Thyroid normal Chest Chest palpation & inspection: normal inspection of the chest Resp Effort & Inspection: normal respiratory effort and no audible wheezes Auscultation: clear to auscultation bilaterally, no crackles, no wheezes and lung sounds not diminished Cardio Rate: regular rate Rhythm: regular rhythm Peripheral pulses: radial pulses present and dorsalis pedis present GI Palpation (GI): no masses Auscultation: normal bowel sounds and normoactive bowel sounds Rectal Exam - Male: Yes deferred Skin General skin exam: no rashes or lesions noted Rashes: no rashes Neuro General: No confusion Cranial nerves: Yes Equal, round and reactive pupils present and Yes Normal hearing present Cognition (Neuro): normal cognition Gait exam (Neuro): Normal gait present Motor exam (neuro): 5/5 motor strength present throughout Deep tendon reflexes (DTR's): Right brachioradialis reflex intensity grade: 2+, Left brachioradialis reflex intensity grade: 2+, Right patellar reflex intensity grade: 2+ and Left patellar reflex intensity grade: 2+ Extrem General: No edema Assessment & Plan Assessment & Plan (1) Medicare annual wellness visit, subsequent: Code(s): Z00.00 - Encounter for general adult medical examination without abnormal findings Plan: Patient is advised to eat healthy, keep well hydrated, keep active and have adequate sleep. (2) Irritable bowel syndrome: Code(s): K58.9 - Irritable bowel syndrome, unspecified Qualifiers: Irritable bowel syndrome type: with diarrhea Qualified Code(s): K58.0 - Irritable bowel syndrome with diarrhea Plan: Continue with present medication as needed (3) Fatty liver: Code(s): K76.0 - Fatty (change of) liver, not elsewhere classified Plan: Low-fat diet and exercise (4) GERD (gastroesophageal reflux disease): Code(s): K21.9 - Gastro-esophageal reflux disease without esophagitis Qualifiers: Esophagitis presence: without esophagitis Qualified Code(s): K21.9 - Gastro-esophageal reflux disease without esophagitis Plan: Avoid the foods that causes that usually spicy foods, tomato products, juices, coffee, soda and foods that your sensitive to. After eating do not lie down, allow 3-4 hours before in lie down. And keep the head of bed above 30 degrees to avoid the acid from going up. (5) Overweight (BMI 25.0-29.9): Code(s): E66.3 - Overweight Plan: Diet and exercise (6) Impaired glucose tolerance: Code(s): R73.02 - Impaired glucose tolerance (oral) Plan: Decrease the amount of carbohydrate intake, pasta, bread, rice and potatoes are all sugar and that is aside from all the sweet stuff, remember that fruits are good but they are Sweet also. (7) Hypercholesterolemia: Code(s): E78.00 - Pure hypercholesterolemia, unspecified Plan: Avoid fried foods, chicken skin, eggs, butter margarine, pastries and meat. Be it pork or beef they have a lot of cholesterol LDL goal of less than 130 and triglyceride of less than 150 (8) Generalized anxiety disorder with panic attacks: Comment: counselling [facility] counselling Code(s): F41.1 - Generalized anxiety disorder; F41.0 - Panic disorder [episodic paroxysmal anxiety] Plan: Continue with counseling and therapy Plan History of Present Illness The patient is a 59-year-old male presenting for an annual physical examination and wellness visit. The patient has a history of hypercholesterolemia, with recent lab results showing borderline cholesterol levels, an LDL of 129 mg/dL, and triglycerides at 157 mg/dL. He has experienced a 7-pound weight gain since October 2024. The patient reports a history of gastroesophageal reflux disease (GERD) and hepatic steatosis. He experiences acid reflux weekly, which is considered frequent and may require further evaluation by a child welfare director. The patient has impaired glucose tolerance, with a previous blood sugar level of 111 mg/dL, although hemoglobin A1c was normal. The patient has generalized anxiety disorder and irritable bowel syndrome, which are managed with medications including buspirone and diphenoxylate. He reports that buspirone causes eczema, which he attributes to long-term use. The patient has a family history of lung cancer and heart attack in his father, and bone cancer in his brother. He denies any new diagnoses or surgeries since his last visit, except for a dental crown placement. The patient reports cataracts and is taking medications to manage the condition. Health Maintenance - Colonoscopy last performed in September 2018 - Last complete blood work in April 2024 showed normal blood count, normal electrolytes, and renal function - Blood sugar was elevated at 111 mg/dL, but hemoglobin A1c was normal - Liver function tests were normal - B12, folic acid, and thyroid levels were within normal limits - Vaccinations: Shingles shot received, tetanus shot up to date Social History - Alcohol use: Consumes beer a few times a week, denies hard liquor - Tobacco use: Occasionally vapes, denies cigarette smoking - Exercise: Walks regularly, achieving 7,600 steps daily - Diet: Follows a low-fat diet - Family history: Father had lung cancer and heart attack; brother had bone cancer Review of Systems - General: Denies fever, chills, or weight loss - HEENT: Reports cataracts; denies hearing loss or sore throat - Cardiovascular: Denies chest pain or palpitations - Respiratory: Denies dyspnea or cough - Gastrointestinal: Reports weekly acid reflux; denies nausea or vomiting - Neurological: Denies dizziness or syncope - Psychiatric: Reports anxiety; denies depression Physical Exam General: Cooperative, overweight, healthy appearing, comfortable, no acute distress and well developed Orientation: Patient oriented x3 Limitations: No limitations Head: Normal to inspection Ears: Hearing grossly normal bilaterally, a little bit of ear wax but not bad Nose: Normal external nose present Face and sinus: Normal facial exam, noted eczema Eyes: Appearance normal, both eyes and all related structures, starting cataracts Neck: Normal visual inspection and Yes full ROM Respiratory: Normal respiratory effort and able to speak in complete sentences. Clear to auscultation bilaterally Cardiovascular: Regular rate and rhythm. Normal S1 and S2 GI: Normal to inspection. Soft to palpation and nontender Skin: No rashes or lesions noted, except for eczema Neuro: Patient oriented x3 Extremities: Normal to inspection Results - Labs: Blood sugar elevated at 111 mg/dL, normal hemoglobin A1c - Labs: LDL cholesterol at 129 mg/dL, triglycerides at 157 mg/dL - Labs: Normal liver function tests - Labs: Normal B12, folic acid, and thyroid levels Plan Patient was informed and verbally consented to the use of an ambient scribe for clinic note documentation during this visit. 1. Hypercholesterolemia The patient will continue with a low-fat diet and regular exercise to manage cholesterol levels. The goal is to achieve an LDL cholesterol level of less than 130 mg/dL and triglycerides of less than 150 mg/dL. 2. Gastroesophageal Reflux Disease (Gerd) The patient is advised to maintain a low-fat diet and exercise regularly to manage GERD symptoms. Further evaluation by a child welfare director may be necessary if symptoms persist. 3. Impaired Glucose Tolerance The patient is encouraged to continue with dietary modifications and regular physical activity to improve glucose tolerance. 4. Generalized Anxiety Disorder The patient will continue with counseling and therapy to manage anxiety symptoms. 5. Irritable Bowel Syndrome The patient is advised to continue current medications and dietary modifications to manage symptoms. 6. Cataracts The patient is taking medications to manage cataracts and will follow up with ophthalmology as needed. Discussion Notes During the visit, we discussed the importance of maintaining a low-fat diet and regular exercise to manage hypercholesterolemia and GERD. I advised the patient to monitor his diet and exercise to improve glucose tolerance and manage anxiety symptoms. We also reviewed the need for regular follow-ups with ophthalmology for cataracts and potential gastroenterology evaluation for persistent GERD symptoms. Patient Instructions - Continue with a low-fat diet and regular exercise. - Monitor diet and exercise to manage glucose levels and anxiety. - Follow up with ophthalmology for cataracts management. - Consider gastroenterology evaluation if GERD symptoms persist. Orders: Referrals Gastroenterology Referral K58.0 - Irritable bowel syndrome with diarrhea Medications: New diphenoxylate-atropine 2.5-0.025 mg 1 tab PO DAILY 30 tabs 2RF 30 days K58.0 - Irritable bowel syndrome with diarrhea Refilled propranolol 20 mg PO .QD 90 tabs 3RF 90 days F41.9 - Anxiety disorder, unspecified clonazepam 0.5 mg PO BEDTIME PRN 30 tabs 2RF anxi 30 days F41.9 - Anxiety disorder, unspecified cholestyramine (Prevalite) administer w/meal; avoid other meds within 1hr before or 4-6hr after dose 4 grams PO BID 60 ea 3RF K58.0 - Irritable bowel syndrome with diarrhea Quality Reporting (2019) Depression/Bipolar (159/160/161/177) PHQ-9: Total score: 7 Coding Level of Care Code Medicare Subsequent (G0439) Diagnoses Medicare annual wellness visit, subsequent Z00.00 Irritable bowel syndrome with diarrhea K58.0 Irritable bowel syndrome type: with diarrhea Fatty liver K76.0 Gastroesophageal reflux disease without esophagitis K21.9 Esophagitis presence: without esophagitis Overweight (BMI 25.0-29.9) E66.3 Impaired glucose tolerance R73.02 Hypercholesterolemia E78.00 Generalized anxiety disorder with panic attacks F41.1; F41.0 Additional Codes PHQ-9 - 52904 - PHQ-9 Billing: Yes ([id number])
== END 2025-01-18 18:20 | disposition home or self-care (01) ==
LOC: HO.HMCH 17:24
PROVIDERS: PCP Internal Medicine; Visit Provider Internal Medicine
DX: Z00.00 Encounter for general adult medical examination without abnormal findings (principal); K58.0 Irritable bowel syndrome with diarrhea; K76.0 Fatty (change of) liver, not elsewhere classified; K21.9 Gastro-esophageal reflux disease without esophagitis; E66.3 Overweight; R73.02 Impaired glucose tolerance (oral); E78.00 Pure hypercholesterolemia, unspecified; F41.1 Generalized anxiety disorder; F41.0 Panic disorder [episodic paroxysmal anxiety]

== ENCOUNTER → 2025-01-18 17:24 | Outpatient (BNVA) | payer OTHER, SELFPAY | PROVIDERS: PCP Internal Medicine; Visit Provider Internal Medicine | DX: Z00.00 Encounter for general adult medical examination without abnormal findings (principal); K58.0 Irritable bowel syndrome with diarrhea; K76.0 Fatty (change of) liver, not elsewhere classified; K21.9 Gastro-esophageal reflux disease without esophagitis; E66.3 Overweight; R73.02 Impaired glucose tolerance (oral); E78.00 Pure hypercholesterolemia, unspecified; F41.1 Generalized anxiety disorder; F41.0 Panic disorder [episodic paroxysmal anxiety]; Z68.28 Body mass index [BMI] 28.0-28.9, adult | CPT/HCPCS: 96127 ==

== ENCOUNTER 2025-01-19 11:34 | Outpatient (REF) | payer OTHER, SELFPAY ==
[2025-01-19 11:52] LABS: MANUAL DIFF FLAG NO
[2025-01-19 12:53] LABS: Hematocrit 45.9 % (42.0-52.0); Hemoglobin 16.2 g/dl (14.0-18.0); Imm Gran Abs Auto 0.02 X10*3/uL (0.00-0.03); Imm Gran Pct Auto 0.3 % (0.0-0.4); Lymphocytes Absolute Auto 2.3 X10*3/uL (1.2-4.9); Mean Corpuscular HGB Conc 35.3 g/dl (31.0-36.0); Mean Corpuscular Hemoglobin 30.3 pg (27.0-33.0); Mean Corpuscular Volume 86.0 fL (80.0-98.0); NRBC Abs Auto 0.000 X10*3/uL (0.0-0.012); NRBC Pct Auto 0.0 /100WBC (0.0-0.2); Platelet Count 162 X10*3/uL (160-400); Red Blood Count 5.34 X10*6/uL (4.60-5.80); White Blood Count 6.5 X10*3/uL (4.8-10.8)
[2025-01-19 13:00] LABS: Hemoglobin A1C 158.8056 umol/L; Total Hemoglobin (HGBA1C) 4150.7482 umol/L
[2025-01-19 13:16] LABS: Alanine Aminotransferase 42 U/L (0-40); Albumin Level 4.6 g/dL (3.5-5.0); Alkaline Phosphatase 63 U/L (39-117); Anion Gap 15 (12-20); Aspartate Amino Transferase 35 U/L (5-37); Blood Urea Nitrogen 19 mg/dL (9-16); Calcium 9.5 mg/dL (8.4-10.2); Carbon Dioxide 27 mmol/L (22-29); Chloride 103 mmol/L (96-108); Cholesterol 219 mg/dL (<200); Estimated Glomerular Filt Rate > 60; HDL Cholesterol 49 mg/dL (>40); Potassium 4.6 mmol/L (3.3-5.1); Sodium 140 mmol/L (135-145); Total Protein 7.9 g/dL (6.5-8.0); Triglycerides 236 mg/dL (<150)
[2025-01-19 13:24] LABS: Free T4 (Free Thyroxine) 0.98 ng/dL (0.71-1.85); Thyroid Stimulating Hormone 1.41 uIU/mL (0.32-4.0)
[2025-01-19 13:37] LABS: Folate 9.0 ng/mL (> or = 4.0); Vitamin B12 442 pg/mL (200-900)
== END 2025-01-19 11:35 | disposition home or self-care (01) ==
LOC: HO.LAB 11:34
PROVIDERS: PCP Internal Medicine; Visit Provider Internal Medicine
DX: Z12.5 Encounter for screening for malignant neoplasm of prostate (principal); R73.02 Impaired glucose tolerance (oral); E78.00 Pure hypercholesterolemia, unspecified
CPT/HCPCS: 36415; 80053; 80061; 82607; 82746; 83036; 84153; 84439; 84443; 85025

== ENCOUNTER 2025-02-01 15:46 | Outpatient (AMB) | payer OTHER, SELFPAY ==
[2025-02-01 15:54] VITALS: BP 128/70; PULSE 68; O2SAT 99; BMI 28.9
--- NOTE | 2025-02-01 15:54 | A.OFFPC_ITS ---
Vital Signs 02/01/25 15:54 Height 5 ft 9 in Weight 196 lb BMI 28.9 BP 128/70 Blood Pressure Location Lt brachial Position Sitting Pulse 68 Pulse Source Pulse Oximeter Pulse Oximetry (%) 99 Oxygen Delivery Method Room Air Intake Visit Reasons: Irritable bowel syndrome Allergies lactose (LACTOSE) Adverse Reaction (Severe, Verified 02/01/25 15:54) TRIGGERS IBS buspirone Adverse Reaction (Intermediate, Verified 02/01/25 15:54) eczema Medication List - Last Reconciled 02/01/25 by Danii Caldera MD cholestyramine (Prevalite) 4 grams PO BID clonazepam 0.5 mg PO BEDTIME PRN 30 days clotrimazole 1% 1 appl topical BID 4 weeks diphenoxylate-atropine 2.5-0.025 mg 1 tab PO DAILY 30 days propranolol 20 mg PO .QD 90 days Tobacco use date assessed: 10/12/24 Dental Screening Dental Screen Date: 10/12/24 [facility] Medical History (Updated 04/20/24 @ 17:35 by Danii Caldera MD) Screening for prostate cancer Obesity (BMI 30-39.9) Overweight (BMI 25.0-29.9) Fatty liver Thrombocytopenia Vitamin D deficiency GERD (gastroesophageal reflux disease) Irritable bowel syndrome Erectile dysfunction Hypercholesterolemia Surgical History History of colonoscopy History of surgery Family History Father Lung cancer Myocardial infarct Mother Hypertension Diabetes Brother Bone cancer Social History Housing: Apartment Alcohol intake: current Alcohol intake frequency: a few times a month Comment: 3x a week 1 drink Patient Tobacco Use Status: Former Tobacco user Tobacco use type: Cigarette Years Smoked: quit 1995 2.5 pack- , occ marijuana vape e-Cigarette/Vaping Use: Never Used Second Hand Smoke Exposure: Yes service: No Current occupational status: unemployed Cognitive needs: No Hearing needs: No Vision needs: Yes Questionnaire Thrive Questionnaire Date Thrive assessed: 10/12/24 I am a: Patient What is your living situation today?: I have a steady place to live Within the past 12 months, did the food you bought not last and you didn't have the money to get more?: I choose not to answer this question Within the past 12 months, did you worry whether your food would run out before you got money to buy more?: I choose not to answer this question Do you have trouble paying for medicines?: Yes Do you have trouble getting transportation to medical appointments?: No Do you have trouble paying your heating and electricity bill?: No Do you have trouble taking care of your child, family member or friend?: No Do you have trouble with day-to-day activities such as bathing, preparing meals, shopping, managing finances, etc.?: No Are you currently unemployed and looking for a job?: Yes Are you interested in more education?: No Please select the resources that you would like help with: None Currently or been in a relationship where the following occur: I choose not to answer THRIVE Score: 0 EZIO-7 AMB Questionnaire EZIO-7 Date EZIO - 7 assessed: 10/12/24 Source: Developed by Drs. Jimenez Pelayo, Rhoda Hawley, Lennox Sin and colleagues, with an educational alaina from [employer]. Physical exam (Primary Care) Vital Signs: Last Vital Signs Pulse 68 02/01/25 15:54 BP 128/70 02/01/25 15:54 Pulse Ox 99 02/01/25 15:54 Oxygen Delivery Method Room Air 02/01/25 15:54 BMI result Body Mass Index 28.9 Tobacco/Smoking Status: Tobacco use Status Tobacco use date assessed 10/12/24 02/01/25 15:55 Patient Tobacco Use Status Former Tobacco user 02/01/25 15:55 Tobacco use type Cigarette 02/01/25 15:55 e-Cigarette/Vaping Use Never Used 02/01/25 15:55 Thrive Assessment: Date of Thrive Assessment Date Thrive assessed 10/12/24 02/01/25 15:55 Currently or been in a relationship where the following occur: I choose not to answer Const General: alert; No acute distress Eyes Conjunctivae: conjunctivae normal Resp Auscultation: clear to auscultation bilaterally Cardio Rate: regular rate Rhythm: regular rhythm GI Inspection: Yes normal to inspection Extrem General: Yes normal to inspection and No edema Coding Level of Care Code Est Pt Level 4 (30769) Complex EM visit Add On G2211 Diagnoses Impaired glucose tolerance R73.02 Hypercholesterolemia E78.00 Gastroesophageal reflux disease without esophagitis K21.9 Esophagitis presence: without esophagitis Fatty liver K76.0 Generalized anxiety disorder with panic attacks F41.1; F41.0 Irritable bowel syndrome with diarrhea K58.0 Irritable bowel syndrome type: with diarrhea Assessment & Plan Assessment & Plan (1) Impaired glucose tolerance: Code(s): R73.02 - Impaired glucose tolerance (oral) Category: Medical Plan: Decrease the amount of carbohydrate intake, pasta, bread, rice and potatoes are all sugar and that is aside from all the sweet stuff, remember that fruits are good but they are Sweet also. (2) Hypercholesterolemia: Code(s): E78.00 - Pure hypercholesterolemia, unspecified Category: Medical Plan: Avoid fried foods, chicken skin, eggs, butter margarine, pastries and meat. Be it pork or beef they have a lot of cholesterol LDL goal of less than 130 and triglyceride of less than 150 (3) GERD (gastroesophageal reflux disease): Code(s): K21.9 - Gastro-esophageal reflux disease without esophagitis Category: Medical Qualifiers: Esophagitis presence: without esophagitis Qualified Code(s): K21.9 - Gastro-esophageal reflux disease without esophagitis Plan: Avoid the foods that causes that usually spicy foods, tomato products, juices, coffee, soda and foods that your sensitive to. After eating do not lie down, allow 3-4 hours before in lie down. And keep the head of bed above 30 degrees to avoid the acid from going up. (4) Fatty liver: Code(s): K76.0 - Fatty (change of) liver, not elsewhere classified Category: Medical Plan: Low-fat diet and exercise (5) Generalized anxiety disorder with panic attacks: Comment: counselling [facility] counselling Code(s): F41.1 - Generalized anxiety disorder; F41.0 - Panic disorder [episodic paroxysmal anxiety] Category: Medical Plan: Continue with counseling and therapy on clonazepam as needed (6) Irritable bowel syndrome: Code(s): K58.9 - Irritable bowel syndrome, unspecified Category: Medical Qualifiers: Irritable bowel syndrome type: with diarrhea Qualified Code(s): K58.0 - Irritable bowel syndrome with diarrhea Plan: Continue with symptomatic treatment Plan History of Present Illness The patient is a 59-year-old male presenting for a follow-up visit after his last medical annual wellness check-up. The patient has a history of irritable bowel syndrome and gastroesophageal reflux disease. He also has impaired glucose tolerance and fatty liver disease, which were identified in previous evaluations. In 2010, the patient was found to have hepatic steatosis, and his liver function tests have been elevated since then. Despite this, his blood count, electrolytes, and renal function remain normal. The patient also has a history of generalized anxiety disorder, for which he continues to receive counseling and therapy. He is prescribed clonazepam as needed for anxiety management. His cholesterol levels have shown improvement, with LDL cholesterol at 123 mg/dL, although triglycerides remain elevated at 136 mg/dL. The patient is advised to maintain a low-fat diet and engage in regular exercise to manage his cholesterol and triglyceride levels. Health Maintenance - Low-fat diet and regular exercise recommended for cholesterol and triglyceride management Social History Review of Systems Physical Exam Results - Labs: Normal blood count, normal electrolytes, normal renal function, elevated liver function tests, LDL cholesterol at 123 mg/dL, triglycerides at 136 mg/dL Plan Patient was informed and verbally consented to the use of an ambient scribe for clinic note documentation during this visit. 1. Irritable Bowel Syndrome The patient should continue with dietary modifications and symptomatic treatment as needed. 2. Gastroesophageal Reflux Disease A low-fat diet and regular exercise are recommended to manage symptoms. 3. Impaired Glucose Tolerance The patient should maintain a healthy diet and exercise regimen to prevent progression to diabetes. 4. Fatty Liver Disease The patient should continue with lifestyle modifications, including a low-fat diet and exercise, to manage liver health. 5. Generalized Anxiety Disorder The patient should continue with counseling and therapy, and use clonazepam as needed for anxiety management. 6. Hepatic Steatosis Lifestyle modifications, including diet and exercise, are advised to manage hepatic steatosis. Discussion Notes Patient Instructions - Follow a low-fat diet and engage in regular exercise to manage cholesterol and triglyceride levels. - Continue counseling and therapy for anxiety management, and use clonazepam as needed.
== END 2025-02-01 16:54 | disposition home or self-care (01) ==
LOC: HO.HMCH 15:46
PROVIDERS: PCP Internal Medicine; Visit Provider Internal Medicine
DX: R73.02 Impaired glucose tolerance (oral) (principal); E78.00 Pure hypercholesterolemia, unspecified; K21.9 Gastro-esophageal reflux disease without esophagitis; K76.0 Fatty (change of) liver, not elsewhere classified; F41.1 Generalized anxiety disorder; F41.0 Panic disorder [episodic paroxysmal anxiety]; K58.0 Irritable bowel syndrome with diarrhea

== ENCOUNTER → 2025-02-01 15:46 | Outpatient (BNVA) | payer OTHER, SELFPAY | PROVIDERS: PCP Internal Medicine; Visit Provider Internal Medicine | DX: K21.9 Gastro-esophageal reflux disease without esophagitis (principal); K58.9 Irritable bowel syndrome, unspecified; R73.02 Impaired glucose tolerance (oral); E78.00 Pure hypercholesterolemia, unspecified; K76.0 Fatty (change of) liver, not elsewhere classified; F41.1 Generalized anxiety disorder; F41.0 Panic disorder [episodic paroxysmal anxiety]; K58.0 Irritable bowel syndrome with diarrhea | CPT/HCPCS: 99212 ==